=== PATIENT | female | born 1940 | race Caucasian/White ===

== ENCOUNTER → 2017-01-19 | Day surgery (SDC) | payer MEDICARE, BC, MEDICAID ==
[~2017-01-19] MED LIST: Sodium Chloride 0.9% 10 ML Syringe FLUSH PRN
[2017-01-19 10:11] VITALS: BP 173/78
--- NOTE | 2017-01-19 13:13 | OR ---
DATE OF PROCEDURE: 01/19/2017 POSTOPERATIVE CARE: Postoperative care will be provided mainly at the [address] [place] [address] [facility] in conjunction with [facility]. PREOPERATIVE DIAGNOSIS: Cataract, left eye. PREOPERATIVE DIAGNOSIS: Cataract, left eye. PROCEDURE: Phacoemulsification with intraocular lens placement, left eye. ANESTHESIA: Topical and intracameral. ESTIMATED BLOOD LOSS: Minimal. COMPLICATIONS: None. PATHOLOGY SPECIMENS: None. SURGICAL FINDINGS: None. INDICATION FOR PROCEDURE: The patient is a 76-year-old female with history of a visually significant cataract in the left eye, which interfered with activities of daily living. This consisted of a nuclear sclerosis cataract. Following careful discussion of the risks, benefits and alternatives to cataract extraction with intraocular lens placement including blindness and , the patient elected to proceed, and informed, written consent was obtained prior to the procedure. DESCRIPTION OF THE PROCEDURE: The patient was previously identified, and a dane placed above the left eye. All sources, including the patient, indicated that the left eye was the correct eye. The patient was subsequently taken to the operating room where standard monitors were applied. The patient was then prepped and draped in the usual sterile fashion for ophthalmic surgery. Attention was first directed at the 12 o'clock position where a paracentesis port was fashioned. Shugar solution followed by Viscoat was instilled into the eye. Attention was then directed to the 8:30 position where a triplanar incision was made in a near-clear manner using a keratome. A continuous capsulorrhexis was then made using a combination of the cystotome and Utrata forceps. Hydrodissection was achieved using a balanced salt solution, and the lens rotated nicely. Phacoemulsification was then done using a modified [id number] technique without complication. Phaco time was 13.75 CDE. The remaining cortex was removed using the irrigation/aspiration handpiece. Provisc was then instilled into the eye. A Technis lens, model [id number], at 22.5 diopters was then placed in the capsular bag using an [place] injector. The remaining viscoelastic was removed using the irrigation/aspiration forceps. All wounds were then checked and found to be watertight. The lid speculum and drapes were removed. Maxitrol ointment was placed in the patient's left eye, and the eye was shielded. The patient tolerated the procedure well. The patient was instructed to follow up tomorrow. All needle and sponge counts were correct at the end of the procedure. Aracelis Mittal MD /[id number]
== END ==
LOC: JP.SDS 07:53
PROVIDERS: ATTEND Ophthalmology
DX: H26.9 Unspecified cataract (principal); I25.10 Atherosclerotic heart disease of native coronary artery without angina pectoris; I10 Essential (primary) hypertension; E11.9 Type 2 diabetes mellitus without complications; I73.9 Peripheral vascular disease, unspecified; Z87.891 Personal history of nicotine dependence; Z91.041 Radiographic dye allergy status
CPT/HCPCS: 66984; C1780; J7050

== ENCOUNTER 2017-02-02 06:24 | Day surgery (SDC) | payer MEDICARE, BC, MEDICAID ==
[2017-02-02] MEDS ORDERED: Sodium Chloride 0.9% 10 ML Syringe FLUSH PRN (07:00)
[2017-02-02 07:59] VITALS: BP 201/90
--- NOTE | 2017-02-02 10:06 | OR ---
DATE OF PROCEDURE: 02/02/2017 POSTOPERATIVE CARE: Postoperative care will be provided mainly at the [address] [place] [address] [facility] in conjunction with [facility]. PREOPERATIVE DIAGNOSIS: Cataract, right eye. POSTOPERATIVE DIAGNOSIS: Cataract, right eye. PROCEDURE: Phacoemulsification with intraocular lens placement, right eye. ANESTHESIA: Topical and intracameral. ESTIMATED BLOOD LOSS: Minimal. COMPLICATIONS: None. PATHOLOGY SPECIMENS: None. SURGICAL FINDINGS: None. INDICATION FOR PROCEDURE: The patient is a 76-year-old female with history of a visually significant cataract in the right eye, which interfered with activities of daily living. This consisted of a nuclear sclerosis cataract. Following careful discussion of the risks, benefits and alternatives to cataract extraction with intraocular lens placement including blindness and , the patient elected to proceed, and informed, written consent was obtained prior to the procedure. DESCRIPTION OF THE PROCEDURE: The patient was previously identified, and a dane placed above the right eye. All sources, including the patient, indicated that the right eye was the correct eye. The patient was subsequently taken to the operating room where standard monitors were applied. The patient was then prepped and draped in the usual sterile fashion for ophthalmic surgery. Attention was first directed at the 12 o'clock position where a paracentesis port was fashioned. Shugar solution followed by Viscoat was instilled into the eye. Attention was then directed to the 8:30 position where a triplanar incision was made in a near-clear manner using a keratome. A continuous capsulorrhexis was then made using a combination of the cystotome and Utrata forceps. Hydrodissection was achieved using a balanced salt solution, and the lens rotated nicely. Phacoemulsification was then done using a modified [id number]-[id number] technique without complication. Phaco time was 7.66 CDE. The remaining cortex was removed using the irrigation/aspiration handpiece. Provisc was then instilled into the eye. A Technis lens, model [id number], at 23.0 diopters was then placed in the capsular bag using an [place] injector. The remaining viscoelastic was removed using the irrigation/aspiration forceps. All wounds were then checked and found to be watertight. The lid speculum and drapes were removed. Maxitrol ointment was placed in the patient's right eye, and the eye was shielded. The patient tolerated the procedure well. The patient was instructed to follow up tomorrow. All needle and sponge counts were correct at the end of the procedure. Aracelis Mittal MD /[id number]
== END 2017-02-02 08:01 | disposition home or self-care (01) ==
LOC: JP.SDS 06:24
PROVIDERS: ATTEND Ophthalmology
DX: H25.11 Age-related nuclear cataract, right eye (principal); I25.10 Atherosclerotic heart disease of native coronary artery without angina pectoris; I10 Essential (primary) hypertension; E11.9 Type 2 diabetes mellitus without complications; I73.9 Peripheral vascular disease, unspecified; Z91.041 Radiographic dye allergy status; E04.1 Nontoxic single thyroid nodule
CPT/HCPCS: 66984; C1780; J7050

== ENCOUNTER 2017-10-02 06:21 | Day surgery (SDC) | payer MEDICARE, BC, MEDICAID ==
[2017-10-02] MEDS ORDERED: Glycopyrrolate 0.2 MG/ML 2 ML SDV IVPUSH ONE (07:00)
[2017-10-02] MEDS ORDERED: Dextrose 5%-Lactated Ringers 1,000 ML IV SCH (07:00)
[2017-10-02] MEDS ORDERED: fentaNYL 100 MCG/2 ML SDV ONE (08:32)
[2017-10-02] MEDS ORDERED: Propofol 200 MG/20 ML SDV ONE (08:32)
[2017-10-02 09:45] VITALS: BP 160/84
--- NOTE | 2017-10-06 11:17 | OR ---
DATE OF PROCEDURE: 10/02/2017 PREOPERATIVE DIAGNOSIS: History of Foreman esophagus. POSTOPERATIVE DIAGNOSES: History of Foreman esophagus with small hiatal hernia and minimal ongoing inflammation at esophagogastric junction. OPERATIVE PROCEDURE: Esophagogastroduodenoscopy with biopsy of esophagogastric junction for surveillance of Foreman esophagus. ANESTHESIA: IV sedation. INDICATION FOR PROCEDURE: A 77-year-old presenting for followup surveillance of her Foreman esophagus. The plan is to proceed with upper GI endoscopy with biopsies as indicated. Potential risks including bleeding and perforation were discussed, and the patient wishes to proceed. DESCRIPTION OF PROCEDURE: The patient was taken to the operating room and placed in a left lateral decubitus position. IV sedation was administered, after which the upper GI endoscope was passed orally through the length of the esophagus and into the stomach with retroflexion view of the fundus, thereafter through the pyloric channel and into the junction of the third and fourth portions of the duodenum. Findings included normal hypopharynx, larynx, upper esophageal sphincter, and esophageal body. At the EG junction, a small hiatal hernia was noted. There was some linear upward extension of the gastroesophageal junction mucosal lining above the gastric folds consistent with Foreman esophagus. No erosions or ulcers or stricturing was noted. There was no plaquing suggestive of neoplastic changes with the remainder of the stomach and duodenal exams were unremarkable. At this point, biopsies were obtained from the area of the possible Foreman esophagus. Once these were completed, minimal bleeding was noted, and the procedure was concluded. The patient was taken to the recovery room in satisfactory condition. There were no evident complications. The patient presently well controlled from a symptom standpoint on Prilosec 20 mg a day, continue that medical regimen assuming there is no progression toward dysplasia with today's biopsies. We would recommend repeat upper GI endoscopy in 2 years. Connor Scott MD /[id number]
== END 2017-10-02 10:12 | disposition home or self-care (01) ==
LOC: JP.SDS 06:21
PROVIDERS: ATTEND Surgery
DX: K22.70 Barrett's esophagus without dysplasia (principal); K44.9 Diaphragmatic hernia without obstruction or gangrene; K31.89 Other diseases of stomach and duodenum; I25.10 Atherosclerotic heart disease of native coronary artery without angina pectoris; I10 Essential (primary) hypertension; E11.9 Type 2 diabetes mellitus without complications; K21.9 Gastro-esophageal reflux disease without esophagitis; I73.9 Peripheral vascular disease, unspecified; Z87.891 Personal history of nicotine dependence; Z91.041 Radiographic dye allergy status
CPT/HCPCS: 43239; 88305; J2704; J3010; J7042; J3490

== ENCOUNTER 2019-11-11 07:02 | Day surgery (SDC) | payer MEDICARE, MEDICAID ==
[2019-11-11] MEDS ORDERED: fentaNYL 100 MCG/2 ML SDV ONE (07:23)
[2019-11-11] MEDS ORDERED: Propofol 200 MG/20 ML SDV ONE (07:24)
[2019-11-11] MEDS ORDERED: Sodium Chloride 0.9% 1,000 ML IV SCH (07:30)
[2019-11-11] MEDS ORDERED: Atropine 0.4 MG/ML SDV ONE (08:30)
[2019-11-11 10:34] VITALS: BP 152/71; PULSE 64
--- NOTE | 2019-11-12 08:07 | OR ---
DATE OF PROCEDURE: 11/11/2019 SURGEON: James Feng MD PROCEDURE PERFORMED: Colonoscopy. FINDINGS: 1. Very tortuous colon. 2. Transverse colon polyp, approximately 1 cm, completely removed using hot snare. COMPLICATIONS: None. CYBER SYSTEMS ADMINISTRATOR: None. ANESTHESIA: MAC. PREOPERATIVE DIAGNOSES: History of colon polyps. POSTOPERATIVE DIAGNOSIS: History of colon polyps. RISKS: Risks, benefits, alternatives, and limitations including, infection, bleeding, and perforation were explained to the patient, who wished to proceed. PROCEDURE IN DETAIL: The patient was placed in left lateral decubitus position. Digital rectal exam was performed without abnormality. Scope was introduced and advanced atraumatically to the ileocecal valve. The scope was brought to the ileocecal valve. Unfortunately, the cecum could not be entered, due to significant tortuosities of the colon. Multiple attempts were made to gently advance this. However, this was unable to be done. Scope was brought back and the aforementioned polyp was completely removed using hot snare wire device. On retroflex, no abnormalities were noted. The patient tolerated the procedure well. James Feng MD /[id number]
== END 2019-11-11 10:15 | disposition home or self-care (01) ==
LOC: JP.SDS 07:02
PROVIDERS: ATTEND Surgery
DX: Z12.11 Encounter for screening for malignant neoplasm of colon (principal); D12.4 Benign neoplasm of descending colon; Q43.8 Other specified congenital malformations of intestine; E11.9 Type 2 diabetes mellitus without complications; I10 Essential (primary) hypertension; Z91.041 Radiographic dye allergy status; Z88.8 Allergy status to other drugs, medicaments and biological substances; Z86.010 Personal history of colon polyps
CPT/HCPCS: 45385; J0461; J2704; J3010; J7030

== ENCOUNTER 2020-10-05 05:19 | Day surgery (SDC) | payer MEDICARE, MEDICAID ==
[2020-10-05] MEDS ORDERED: Dextrose 5%-Lactated Ringers 1,000 ML IV SCH (06:00)
[2020-10-05] MEDS ORDERED: fentaNYL 100 MCG/2 ML SDV ONE (07:13)
[2020-10-05] MEDS ORDERED: Propofol 200 MG/20 ML SDV ONE (07:14)
[2020-10-05] MEDS ORDERED: Pantoprazole 40 MG Vial IVPUSH ONE (07:45)
[2020-10-05 08:33] VITALS: BP 157/59; PULSE 60
--- NOTE | 2020-10-12 12:41 | OR ---
DATE OF PROCEDURE: 10/05/2020 SURGEON: Connor Scott MD PREOPERATIVE DIAGNOSIS: History of Foreman esophagus. POSTOPERATIVE DIAGNOSIS: History of Foreman esophagus with significant inflammation, ulceration, and bleeding over the tongue of elevated columnar mucosa. OPERATIVE PROCEDURE: Esophagogastroduodenoscopy with: 1. Biopsies of area of ulcerated raised columnar mucosa and in area of probable Foreman esophagus. 2. Biopsies of antrum for CLOtest. ANESTHESIA: IV sedation. INDICATIONS FOR PROCEDURE: This is an 80-year-old female presenting with a followup upper endoscopy for surveillance of Foreman esophagus. She presently is on omeprazole 20 mg a day and feels like this has a fairly good control of her symptoms. Plan is to proceed with upper endoscopy with biopsies for followup of the Foreman esophagus. Potential risks including bleeding and perforation were discussed and the patient wishes to proceed. DETAILS OF THE PROCEDURE: The patient was taken to the operating room and placed in a left lateral decubitus position. IV sedation was administered, after which the upper GI endoscope was passed orally through the length of the esophagus and into the stomach with retroflexion view of the fundus and thereafter through the pyloric channel and into the proximal duodenum. Findings included normal hypopharynx, larynx, upper esophageal sphincter, and esophageal body. At the area of EG junction, a single tongue of columnar-type mucosa extending above the upper gastric folds was seen. This was actively ulcerated with some bleeding even before being touched by the gastroscope. This was associated with fairly large roughly 5 to 6 cm hiatal hernia. Apart from that, the remainder of the stomach and proximal duodenum were unremarkable. At this point, biopsies were obtained for the antrum for screening for H. pylori and this biopsy being sent for CLOtest and then multiple biopsies from the area of ulceration over the likely Foreman's esophagus were obtained. Minimal bleeding from the biopsy site was seen, additional bleeding was very presently, and the patient tolerated the procedure well. The patient was taken to the recovery room in satisfactory condition. At this point, we will move her omeprazole dose up to 20 mg b.i.d. We will await the pathology report and contact the patient regarding appropriate followup which would be a minimum of followup upper endoscopy in about 2 years. Connor Scott MD /[id number]
== END 2020-10-05 08:50 | disposition home or self-care (01) ==
LOC: JP.SDS 05:19
PROVIDERS: ATTEND Surgery
DX: K22.10 Ulcer of esophagus without bleeding (principal); K44.9 Diaphragmatic hernia without obstruction or gangrene; K21.00 Gastro-esophageal reflux disease with esophagitis, without bleeding; I25.10 Atherosclerotic heart disease of native coronary artery without angina pectoris; I10 Essential (primary) hypertension; E11.9 Type 2 diabetes mellitus without complications; Z91.041 Radiographic dye allergy status
CPT/HCPCS: 43239; 87081; 88305; 88312; C9113; J2704; J3010; J7121

== ENCOUNTER 2021-03-17 05:29 | Emergency (ER) | payer MEDICARE, MEDICAID ==
--- NOTE | 2021-03-17 06:28 | EDM.PDOC ---
<OfficerYarile - Last Filed: 03/17/21 06:46> ED HPI GENERAL MEDICAL PROBLEM - General Chief Complaint: General Stated Complaint: LEG NUMB Time Seen by Provider: 03/17/21 06:20 Source of Information: Reports: Patient, Family, RN Notes Reviewed History Limitations: Reports: No Limitations - History of Present Illness INITIAL COMMENTS - FREE TEXT/NARRATIVE: 80-year-old female presents emergency department day complaint of painful cold right foot, she states it started last night the foot had gone numb she was able to ambulate around the room this did help a little bit she went to bed and then this morning she woke up foot was painful. She is not taking any of her medications this morning on presentation to nursing staff her heart rate was in the high 30s however this is now returned to normal rate. Right Foot Pain Score (Numeric/FACES): 8 - Related Data Allergies Allergy/AdvReac Type Severity Reaction Status Date / Time Iodinated Contrast Media Allergy Itching Verified 03/17/21 05:56 [Iodinated Contrast Media - IV Dye] Home Meds: Home Meds Atenolol [Tenormin] 50 mg PO BEDTIME 08/02/13 [History] Isosorbide Mononitrate [Imdur] 60 mg PO BEDTIME 08/02/13 [History] Omeprazole [Prilosec] 20 mg PO BID 08/02/13 [History] amLODIPine/Benazepril [Lotrel 5-10 MG] 5 - 10 tab PO BEDTIME 08/02/13 [History] metFORMIN [Glucophage] 500 mg PO BIDM 08/02/13 [History] Glimepiride [Amaryl] 4 mg PO ACBREAKFAST 09/24/15 [History] Aspirin 325 mg PO DAILY 09/28/17 [History] Ferrous Sulfate 325 mg PO DAILY 11/07/19 [History] Rosuvastatin [Crestor] 10 mg PO DAILY 11/07/19 [History] Meclizine [Antivert] 12.5 - 25 mg PO TID PRN 10/02/20 [History] Past Medical History HEENT History: Reports: Allergic Rhinitis, Cataract, Impaired Vision Cardiovascular History: Reports: CAD, High Cholesterol, Hypertension, SD Gastrointestinal History: Reports: Colon Polyp, GERD, Hiatal Hernia, Other (See Below) Other Gastrointestinal History: Barretts esophagus Genitourinary History: Reports: UTI, 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: Musculoskeletal History: Reports: Arthritis, Fracture, Osteoarthritis, Other (See Below) Other Musculoskeletal History: right wrist fracture nose Endocrine/Metabolic History: Reports: Diabetes, Type II Hematologic History: Reports: Anemia, Anticoagulation Therapy Oncologic (Cancer) History: Reports: None - Infectious Disease History Infectious Disease History: Reports: Chicken Pox, Measles, Mumps, Pertussis (Whooping Cough), Scarlet Fever - Past Surgical History Head Surgeries/Procedures: Reports: None HEENT Surgical History: Reports: Cataract Surgery, Oral Surgery Cardiovascular Surgical History: Reports: Percutaneous Transluminal Angioplasty, Vascular Surgery Respiratory Surgical History: Reports: None GI Surgical History: Reports: Colonoscopy, EGD, Hernia Repair/Other, Polypectomy Other GI Surgeries/Procedures: hiatal hernia repair Female Surgical History: Reports: Hysterectomy Endocrine Surgical History: Reports: None Neurological Surgical History: Reports: None Musculoskeletal Surgical History: Reports: Other (See Below) Other Musculoskeletal Surgeries/Procedures:: right wrist pins and then removed Oncologic Surgical History: Reports: None Dermatological Surgical History: Reports: None Social & Family History - Family History Family Medical History: No Pertinent Family History - Tobacco Use Tobacco Use Status *Q: Never Tobacco User - Caffeine Use Caffeine Use: Reports: Coffee, Soda, Tea - Recreational Drug Use Recreational Drug Use: No ED ROS GENERAL - Review of Systems Review Of Systems: See Below Constitutional: Reports: No Symptoms HEENT: Reports: No Symptoms Respiratory: Reports: No Symptoms Cardiovascular: Reports: No Symptoms GI/Abdominal: Reports: No Symptoms Musculoskeletal: Reports: Leg Pain Neurological: Reports: Numbness, Tingling ED EXAM, GENERAL - Physical Exam Exam: See Below Exam Limited By: No Limitations General Appearance: Alert, WD/WN, No Apparent Distress Respiratory/Chest: No Respiratory Distress, Lungs Clear, Normal Breath Sounds, No Accessory Muscle Use, Chest Non-Tender Cardiovascular: Regular Rate, Rhythm, No Murmur Peripheral Pulses: 2+: Dorsalis Pedis (L), 4+: Dorsalis Pedis (R) (Cold foot) #1 Interpretation EKG Date: 03/17/21 Time: 06:47 Rhythm: NSR Meade: Normal P-Wave: Present QRS: Normal ST-T: Normal QT: Normal Comparison: NA - No Prior EKG Departure - Departure Disposition: DC/Tfer to Acute Hospital 02 Clinical Impression: Ischemia of right lower extremity - Discharge Information Referrals: PCP,None [Primary Care Provider] - Forms: ED Department Discharge Sepsis Event Note (ED) - Evaluation Sepsis Screening Result: No Definite Risk <Calvin Pierson - Last Filed: 03/17/21 09:11> Course - Vital Signs Text/Narrative:: Accepted in transfer by Dr. Garibay, vascular surgeon, @ [facility] @ 0900h Last Recorded V/S: Last Vital Signs Temp 36.3 C 03/17/21 06:00 Pulse 67 03/17/21 08:05 Resp 16 03/17/21 08:05 BP 131/63 03/17/21 08:05 Pulse Ox 96 03/17/21 08:05 - Orders/Labs/Meds Orders: Active Orders 24 hr Category Date Time Status VL Duplex Lwr Ext Art Ltd Rt [US] Stat Exams 03/17/21 06:24 Ordered EKG 12 Lead [EK] Stat Ther 03/17/21 06:26 Ordered Labs: Laboratory Tests 03/17/21 03/17/21 Range/Units 06:36 06:36 WBC 6.4 (4.5-11.0) K/uL RBC 4.46 (3.30-5.50) M/uL Hgb 12.6 (12.0-15.0) g/dL Hct 38.0 (36.0-48.0) % MCV 85 (80-98) fL MCH 28 (27-31) pg MCHC 33 (32-36) % Plt Count 179 (150-400) K/uL Neut % (Auto) 63.5 (36-66) % Lymph % (Auto) 22.4 L (24-44) % Banner % (Auto) 6.9 H (2-6) % Eos % (Auto) 6.7 H (2-4) % Baso % (Auto) 0.5 (0-1) % Sodium 138 L (140-148) mmol/L Potassium 3.9 (3.6-5.2) mmol/L Chloride 99 L (100-108) mmol/L Carbon Dioxide 25 (21-32) mmol/L Anion Gap 17.9 H (5.0-14.0) mmol/L BUN 12 (7-18) mg/dL Creatinine 0.9 (0.6-1.0) mg/dL Est Cr Clr Drug Dosing 35.81 mL/min Estimated GFR (MDRD) > 60 (>60) Glucose 140 H (74-106) mg/dL Calcium 8.6 (8.5-10.1) mg/dL Total Bilirubin 0.7 (0.2-1.0) mg/dL AST 15 (15-37) U/L ALT 15 (12-78) U/L Alkaline Phosphatase 49 (46-116) U/L Troponin I 0.051 (0.000-0.056) ng/mL Total Protein 7.1 (6.4-8.2) g/dL Albumin 3.7 (3.4-5.0) g/dL Globulin 3.4 (2.3-3.5) g/dL Albumin/Globulin Ratio 1.1 L (1.2-2.2) Meds: Medications Discontinued Medications Generic Name Dose Route Start Last Admin Trade Name Freq PRN Reason Stop Dose Admin Hydromorphone HCl 0.5 mg 03/17/21 07:32 03/17/21 07:42 Hydromorphone 0.5 Mg/0.5 Ml Syringe IVPUSH 03/17/21 07:33 0.5 mg ONETIME ONE Administration Hydromorphone HCl Confirm 03/17/21 07:39 Hydromorphone 0.5 Mg/0.5 Ml Syringe Administered 03/17/21 07:40 Dose 0.5 mg .ROUTE .STK-MED ONE Hydromorphone HCl 0.5 mg 03/17/21 09:03 Hydromorphone 0.5 Mg/0.5 Ml Syringe IVPUSH 03/17/21 09:04 ONETIME ONE - Radiology Interpretation Free Text/Narrative:: Doppler studies show minimal flow in affected limb. Her old graft is chronically occluded. No flow at level of foot. Departure - Departure Time of Disposition: 09:35 Condition: Fair - Discharge Information *PRESCRIPTION DRUG MONITORING PROGRAM REVIEWED*: Not Applicable *COPY OF PRESCRIPTION DRUG MONITORING REPORT IN PATIENT [place]: Not Applicable Sepsis Event Note (ED) - Focused Exam Vital Signs: Vital Signs Temp Pulse Resp BP Pulse Ox 03/17/21 08:05 67 16 131/63 96 03/17/21 07:36 67 18 155/67 H 96 03/17/21 06:00 36.3 C 43 L 16 147/46 H 97 03/17/21 05:59 36.3 C 43 L 16 147/46 H 97
[2021-03-17] MEDS ORDERED: HYDROmorphone 0.5 MG/0.5 ML Syringe IVPUSH ONE ×2 (07:32→09:03)
[2021-03-17] MEDS ORDERED: HYDROmorphone 0.5 MG/0.5 ML Syringe ONE ×2 (07:39→09:09)
[2021-03-17 09:38] VITALS: BP 158/72; PULSE 69
[2021-03-17] MEDS ORDERED: Aspirin 325 MG Tab.EC PO ONE (09:50)
[2021-03-17] MEDS ORDERED: metFORMIN 500 MG Tab PO ONE (09:51)
[2021-03-17] MEDS ORDERED: Pantoprazole 40 MG Tab.CR PO SCH (10:00)
--- NOTE | 2021-03-17 14:24 | US ---
VL Duplex Lwr Ext Art Ltd Rt CLINICAL HISTORY: Cold right foot FINDINGS: Doppler images show biphasic waveforms in the common femoral artery. The this wishes to monophasic waveforms in the profunda femoral artery and in the proximal superficial femoral artery. Patient had a previous femoropopliteal bypass graft which is occluded. There is monophasic waveforms in the proximal anterior tibial artery. No waveforms are identified in the distal peroneal posterior tibial and dorsal pedal arteries IMPRESSION: Occluded femoral popliteal bypass graft Moderately diminished flow in the superficial femoral and profunda arteries No flow is documented in the ankle arteries
== END 2021-03-17 10:08 ==
LOC: JP.ED 05:29
DX: I70.221 Atherosclerosis of native arteries of extremities with rest pain, right leg (principal); E78.00 Pure hypercholesterolemia, unspecified; I10 Essential (primary) hypertension; I25.10 Atherosclerotic heart disease of native coronary artery without angina pectoris; I25.2 Old myocardial infarction; E11.9 Type 2 diabetes mellitus without complications; Z79.84 Long term (current) use of oral hypoglycemic drugs; Z79.82 Long term (current) use of aspirin; Z79.899 Other long term (current) drug therapy; Z91.041 Radiographic dye allergy status
CPT/HCPCS: 36415; 80053; 84484; 85025; 93005; 93926; 96374; 96376; 99285; A9270; J1170

== ENCOUNTER 2021-06-30 15:24 | Emergency (ER) | payer MEDICARE, MEDICAID ==
--- NOTE | 2021-06-30 15:48 | EDM.PDOC ---
ED HPI GENERAL MEDICAL PROBLEM - General Chief Complaint: Respiratory Problem Stated Complaint: SOB Time Seen by Provider: 06/30/21 15:45 Source of Information: Reports: Patient History Limitations: Reports: No Limitations - History of Present Illness INITIAL COMMENTS - FREE TEXT/NARRATIVE: 81-year-old female presents to the emergency department with dyspnea and exercise intolerance. Symptoms started yesterday. Sudden onset of symptoms while she was walking. She was not doing any strenuous activity. She is asymptomatic at rest. Symptoms recur with minimal activity. She denies any chest discomfort. No diaphoresis. No nausea. No jaw claudication. No paresthesias. Patient has history of silent IN. She does not know the status of her ejection fraction. 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 She was recently taken off her beta-ev and calcium channel ev medication and recently had revascularization for critical right lower extremity claudication. She had femoral endarterectomy. Previous to that, she had femoropopliteal bypass. She has jewish of pulses. Wounds on her right lower extremity have been healing. She denies any history of deep vein thrombosis or pulmonary embolism. She denies any recent ill exposure. She has not been having any significant cough. Denies any fever. Denies any dizziness. She has had swelling in her right lower extremity, but that preceded and followed her recent right leg intervention. Patient is on full-strength aspirin. Blood pressure medications have recently been adjusted. She has longstanding history of poorly controlled hypertension. Patient has not picked up the hydralazine that was prescribed at her discharge. She was hoping to discuss that with her doctor at her appointment tomorrow morning. She denies any new headaches. Denies any tearing chest pain. Denies any bleeding events. - Related Data Allergies Allergy/AdvReac Type Severity Reaction Status Date / Time Iodinated Contrast Media Allergy Itching Verified 03/17/21 05:56 [Iodinated Contrast Media - IV Dye] Home Meds: Home Meds Isosorbide Mononitrate [Imdur] 60 mg PO BEDTIME 08/02/13 [History] Omeprazole [Prilosec] 20 mg PO BID 08/02/13 [History] metFORMIN [Glucophage] 500 mg PO BIDM 08/02/13 [History] Glimepiride [Amaryl] 4 mg PO ACBREAKFAST 09/24/15 [History] Aspirin 325 mg PO DAILY PRN 09/28/17 [History] Ferrous Sulfate 325 mg PO DAILY 11/07/19 [History] Rosuvastatin [Crestor] 10 mg PO DAILY 11/07/19 [History] Meclizine [Antivert] 12.5 - 25 mg PO TID PRN 10/02/20 [History] hydrALAZINE [Apresoline] 25 mg PO Q12HR 06/30/21 [History] Past Medical History HEENT History: Reports: Allergic Rhinitis, Cataract, Impaired Vision Cardiovascular History: Reports: CAD, High Cholesterol, Hypertension, IN Respiratory History: Reports: None Gastrointestinal History: Reports: Colon Polyp, GERD, Hiatal Hernia, Other (See Below) Other Gastrointestinal History: Barretts esophagus Genitourinary History: Reports: UTI, Recurrent [employer]GER History: Reports: Musculoskeletal History: Reports: Arthritis, Fracture, Osteoarthritis, Other (See Below) Other Musculoskeletal History: right wrist fracture nose Endocrine/Metabolic History: Reports: Diabetes, Type II Hematologic History: Reports: Anemia, Anticoagulation Therapy Oncologic (Cancer) History: Reports: None - Infectious Disease History Infectious Disease History: Reports: Chicken Pox, Measles, Mumps, Pertussis (Whooping Cough), Scarlet Fever - Past Surgical History Head Surgeries/Procedures: Reports: None HEENT Surgical History: Reports: Cataract Surgery, Oral Surgery Cardiovascular Surgical History: Reports: Percutaneous Transluminal Angioplasty, Vascular Surgery Respiratory Surgical History: Reports: None GI Surgical History: Reports: Colonoscopy, EGD, Hernia Repair/Other, Polypectomy Other GI Surgeries/Procedures: hiatal hernia repair Female Surgical History: Reports: Hysterectomy Endocrine Surgical History: Reports: None Neurological Surgical History: Reports: None Musculoskeletal Surgical History: Reports: Other (See Below) Other Musculoskeletal Surgeries/Procedures:: right wrist pins and then removed Oncologic Surgical History: Reports: None Dermatological Surgical History: Reports: None Social & Family History - Family History Family Medical History: No Pertinent Family History - Tobacco Use Tobacco Use Status *Q: Former Tobacco User Used Tobacco, but Quit: Yes Month/Year Tobacco Last Used: 06/07/1991 - Caffeine Use Caffeine Use: Reports: Coffee, Soda, Tea - Recreational Drug Use Recreational Drug Use: No ED ROS GENERAL - Review of Systems Review Of Systems: Comprehensive ROS is negative, except as noted in HPI. ED EXAM, GENERAL - Physical Exam Exam: See Below Free Text/Narrative:: General: This is a pleasant elderly female who is alert and in no acute distress. She is conversational and her speech is normal. HEENT: Pupils are equal. Extraocular movements are intact. Conjunctiva clear. No subconjunctival hemorrhages. Nares are patent. No epistaxis. Oral mucosa is moist. No lesions. Neck: Trachea midline. No thyromegaly. No masses. No lymphadenopathy. Lungs: Clear to auscultation. No wheezes or rhonchi. No crackles. Cardiovascular: Bradycardic. Regular rhythm. No murmurs. Abdomen: Soft and nontender. No masses. No organomegaly. Back: Kyphotic posture. Nontender. Extremities: Right lower extremity swelling compared to left. Is on her distal and lateral right lower extremity have healed since her revascularization. Pulses are palpable in her dorsalis pedis and posterior tibialis artery. Negative Homans' sign. No palpable cords. Neurologic: Cranial nerves are intact. No motor or sensory deficits. Exam Limited By: No Limitations General Appearance: Alert #1 Interpretation EKG Date: 06/30/21 Time: 16:57 Rhythm: Other (Sinus bradycardia) Rate (Beats/Min): 45 [place]: Normal P-Wave: Present QRS: RBBB ST-T: Normal QT: Normal Comparison: No Change Course - Vital Signs Last Recorded V/S: Last Vital Signs Temp 97.4 F 06/30/21 15:44 Pulse 46 L 06/30/21 18:21 Resp 16 06/30/21 15:44 BP 193/60 H 06/30/21 18:23 Pulse Ox 94 L 06/30/21 18:21 - Orders/Labs/Meds Orders: Active Orders 24 hr Category Date Time Status Chest 2V [CR] Stat Exams 06/30/21 16:07 Taken Isolation [COMM] Stat Oth 06/30/21 16:13 Ordered EKG 12 Lead [EK] Stat Ther 06/30/21 16:07 Ordered Labs: Laboratory Tests 06/30/21 06/30/21 06/30/21 Range/Units 16:20 16:22 16:22 WBC 5.5 (4.5-11.0) K/uL RBC 3.91 (3.30-5.50) M/uL Hgb 10.7 L (12.0-15.0) g/dL Hct 34.4 L (36.0-48.0) % MCV 88 (80-98) fL MCH 27 (27-31) pg MCHC 31 L (32-36) % Plt Count 145 L (150-400) K/uL Neut % (Auto) 64.1 (36-66) % Lymph % (Auto) 22.7 L (24-44) % [place] % (Auto) 6.8 H (2-6) % Eos % (Auto) 5.5 H (2-4) % Baso % (Auto) 0.7 (0-1) % D-Dimer, Quantitative 985.81 H (0.0-500.0) ng/mL Sodium (140-148) mmol/L Potassium (3.6-5.2) mmol/L Chloride (100-108) mmol/L Carbon Dioxide (21-32) mmol/L Anion Gap (5.0-14.0) mmol/L BUN (7-18) mg/dL Creatinine (0.6-1.0) mg/dL Est Cr Clr Drug Dosing mL/min Estimated GFR (MDRD) (>60) Glucose (74-106) mg/dL Calcium (8.5-10.1) mg/dL Troponin I High Sens (<=60.3) pg/mL NT-Pro-B Natriuret Pep (5-450) pg/mL Influenza Type A RNA Negative (NEGATIVE) RSV RNA (INAAT) Negative (NEGATIVE) Influenza Type B RNA Negative (NEGATIVE) SARS-CoV-2 RNA (GINA) Negative (NEGATIVE) 06/30/21 06/30/21 06/30/21 Range/Units 16:22 17:02 18:21 WBC (4.5-11.0) K/uL RBC (3.30-5.50) M/uL Hgb (12.0-15.0) g/dL Hct (36.0-48.0) % MCV (80-98) fL MCH (27-31) pg MCHC (32-36) % Plt Count (150-400) K/uL Neut % (Auto) (36-66) % Lymph % (Auto) (24-44) % [place] % (Auto) (2-6) % Eos % (Auto) (2-4) % Baso % (Auto) (0-1) % D-Dimer, Quantitative (0.0-500.0) ng/mL Sodium 142 (140-148) mmol/L Potassium 4.2 (3.6-5.2) mmol/L Chloride 106 (100-108) mmol/L Carbon Dioxide 28 (21-32) mmol/L Anion Gap 7.6 (5.0-14.0) mmol/L BUN 20 H D (7-18) mg/dL Creatinine 1.2 H (0.6-1.0) mg/dL Est Cr Clr Drug Dosing 26.41 mL/min Estimated GFR (MDRD) 43 L (>60) Glucose 194 H (74-106) mg/dL Calcium 8.9 (8.5-10.1) mg/dL Troponin I High Sens 645.6 H* 645.0 H* (<=60.3) pg/mL NT-Pro-B Natriuret Pep 86706 H (5-450) pg/mL Influenza Type A RNA (NEGATIVE) RSV RNA (INAAT) (NEGATIVE) Influenza Type B RNA (NEGATIVE) SARS-CoV-2 RNA (GINA) (NEGATIVE) Meds: Medications Discontinued Medications Generic Name Dose Route Start Last Admin Trade Name Freq PRN Reason Stop Dose Admin Furosemide 20 mg 06/30/21 17:56 06/30/21 18:23 Furosemide 20 Mg Tab PO 06/30/21 17:57 20 mg ONETIME ONE Administration Hydralazine HCl 25 mg 06/30/21 17:55 06/30/21 18:23 Hydralazine 25 Mg Tab PO 06/30/21 17:56 25 mg ONETIME ONE Administration - Radiology Interpretation Free Text/Narrative:: Chest x-ray was ordered and interpreted by myself pending official read from radiology. Cardiomegaly is present. This is similar compared to previous. She does have some perivascular congestion. She has minimal pleural effusions with blunting of costophrenic angles. No obvious infiltrate. - Re-Assessments/Exams Free Text/Narrative Re-Assessment/Exam: 06/30/21 16:59 Review medical records from [facility]. Patient developed complete heart block while on combination of a beta-ev and calcium channel ev. These were discontinued. She was on transvenous pacer. EP consult was placed. Kevin nesha was discharged with usual follow-up. At the time of discharge, hemoglobin was 10.4. Heart rate was in the low to mid 40s. Systolic pressures were in the 140s to 190s and diastolics were in the 50s to 70s. EP cardiology suggested a 30-day event monitor on discharge and follow-up with Dr. Alegria in 1 month. She was instructed to continue aspirin, Crestor, lisinopril, Imdur for history of coronary artery disease. 06/30/21 17:27 A long conversation with the patient regarding her test results and my differential diagnosis. Given her elevated troponin and her chest x-ray, I asked about weight gain. She indicates a 6 pound weight gain. I think this correlates with mild heart failure symptoms likely caused from uncontrolled hypertension. Patient also has bradycardia which may be symptomatic, and she is in the process of being evaluated for a pacemaker. Elevated age-adjusted D- dimer is also discussed. Patient has contrast allergy. She also has borderline renal function. With joint decision-making, we elected to defer CT angiography. Patient is not hypoxic nor tachypneic. I feel that she has a alternative explanation for her dyspnea with her heart failure and uncontrolled hypertension. I indicated my desire to recheck a troponin at 2 hours post initial check to monitor for stability. We discussed diuretic therapy for management of heart failure symptoms. She has follow-up tomorrow morning with her primary care provider. Patient does not have any concern about going home with clear instructions and potentially new medications (diuretics). 06/30/21 17:43 His medical records indicate elevated troponin while hospitalized 1 month ago. These were in the range of 0.063-0.077. Departure - Departure Time of Disposition: 19:12 Disposition: Home, Self-Care 01 Condition: Good Clinical Impression: Congestive heart failure, Hypertension with fluid overload - Discharge Information *PRESCRIPTION DRUG MONITORING PROGRAM REVIEWED*: Not Applicable *COPY OF PRESCRIPTION DRUG MONITORING REPORT IN PATIENT [place]: Not Applicable Instructions: Heart Failure, Self-Care, [id number], Heart Failure Action Plan, Heart Failure, Self-Care Referrals: Leo Peace NP [Primary Care Provider] - Forms: ED Department Discharge Additional Instructions: Low-sodium diet. Monitor weights. Restrict fluids to 1-1/2 L/day. Take hypertension medications as directed. Follow-up with cardiology as planned. Determination of need for pacemaker is pending. Sepsis Event Note (ED) - Evaluation Sepsis Screening Result: No Definite Risk - Focused Exam Vital Signs: Vital Signs Temp Pulse Resp BP BP Pulse Ox 06/30/21 18:23 193/60 H 06/30/21 18:21 46 L 193/60 H 94 L 06/30/21 17:48 44 L 188/68 H 94 L 06/30/21 17:26 44 L 194/59 H 94 L 06/30/21 16:53 44 L 202/64 H 94 L 06/30/21 16:23 46 L 193/66 H 92 L 06/30/21 16:03 47 L 212/57 H 96 06/30/21 15:44 97.4 F 52 L 16 215/59 H 95 06/30/21 15:41 97.4 F 52 L 16 215/59 H 95 - My Orders Last 24 Hours: My Active Orders 06/30/21 16:07 Chest 2V [CR] Stat EKG 12 Lead [EK] Stat 06/30/21 16:13 Isolation [COMM] Stat - Assessment/Plan Last 24 Hours: My Active Orders 06/30/21 16:07 Chest 2V [CR] Stat EKG 12 Lead [EK] Stat 06/30/21 16:13 Isolation [COMM] Stat Assessment:: 1. Uncontrolled hypertension 2. Dyspnea with exertion 3. Weight gain of 6 pounds 4. Pulmonary vascular congestion on chest x-ray 5. Elevated troponin, likely secondary to heart failure 6. Elevated age-adjusted D-dimer, nonspecific. Recent femoral artery endarterectomy 1 month ago. We shared decision-making, patient deferred CT angiogram of chest. Also has contrast allergy. 7. Mild anemia. This is stable compared with 1 month ago. 8. Diabetes mellitus, with hyperglycemia 9. Coronary artery disease, records indicate this is nonobstructive. 10. Peripheral arterial disease, recent femoral artery endarterectomy with palpable pulses and healing ulcers. No claudication symptoms. 11. Bradycardia, likely symptomatic, pending EP evaluation for consideration of pacemaker. 12. Remote history tobacco use. 13. Chronic kidney disease. Plan: Patient was given a 25 mg dose of hydralazine in the ED with improvement of blood pressure and no adverse reaction. Patient also received 20 mg of PO furosemide. She did have UOP but was uncertain if the volume was greater than baseline. Discussed safe discharge plan with. Return precautions. We discussed high probability of heart failure secondary to uncontrolled hypertension with resultant pulmonary edema as a cause for her symptoms of dyspnea with exertion. Weight gain correlates with this. Noncompliance with hydralazine correlates with this. Patient has appointment tomorrow and is reliable for follow-up. 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 I gave her a copy of her discharge medication reconciliation sheet from her recent hospitalization. She will discuss dosing of furosemide with her primary care provider tomorrow. If she does not have a significant diuretic response, doubling the dose would seem to be appropriate. She states that she will have laboratory testing tomorrow which was planned at a time. I think this is appropriate as well.
[2021-06-30 16:57] LABS: CORONAVIRUS COVID-19 NAA NEGATIVE (NEGATIVE)
[2021-06-30] MEDS ORDERED: hydrALAZINE 25 MG Tab PO ONE (17:55)
[2021-06-30] MEDS ORDERED: Furosemide 20 MG Tab PO ONE (17:56)
[2021-06-30 19:13] VITALS: BP 196/63; PULSE 49
--- NOTE | 2021-07-01 09:29 | CR ---
CHEST: 2 view CLINICAL HISTORY:SOB COMPARISON:2016 FINDINGS: Heart is enlarged. There are diffuse bilateral interstitial and alveolar infiltrates. There are small bilateral pleural effusions.There are atherosclerotic changes in the aorta. Impression: Diffuse bilateral pulmonary infiltrates. This most likely represents CHF. Diffuse pneumonitis is felt less likely but not excluded
== END 2021-06-30 19:36 | disposition home or self-care (01) ==
LOC: JP.ED 15:24
DX: I11.0 Hypertensive heart disease with heart failure (principal); I50.9 Heart failure, unspecified; E87.70 Fluid overload, unspecified; I25.10 Atherosclerotic heart disease of native coronary artery without angina pectoris; E78.00 Pure hypercholesterolemia, unspecified; I25.2 Old myocardial infarction; E11.9 Type 2 diabetes mellitus without complications; M19.90 Unspecified osteoarthritis, unspecified site; Z91.041 Radiographic dye allergy status; Z79.899 Other long term (current) drug therapy; Z20.822 Contact with and (suspected) exposure to COVID-19; Z79.82 Long term (current) use of aspirin; Z87.891 Personal history of nicotine dependence
CPT/HCPCS: 0241U; 36415; 71046; 80048; 83880; 84484; 85025; 85379; 93005; 99285; A9270

== ENCOUNTER 2022-02-04 07:55 | Day surgery (SDC) | payer MEDICARE, MEDICAID ==
[~2022-02-04 07:55] MED LIST changes: +Propofol 200 MG/20 ML SDV ONE; -Sodium Chloride 0.9% 10 ML Syringe FLUSH PRN; +fentaNYL 100 MCG/2 ML SDV ONE
[2022-02-04] MEDS ORDERED: Dextrose 5%-Lactated Ringers 1,000 ML IV SCH (08:30)
[2022-02-04 10:17] VITALS: BP 183/47
[2022-02-04 10:48] VITALS: PULSE 39
== END 2022-02-04 11:07 | disposition home or self-care (01) ==
LOC: JP.SDS 07:55
PROVIDERS: ATTEND Surgery
DX: K22.70 Barrett's esophagus without dysplasia (principal); K21.9 Gastro-esophageal reflux disease without esophagitis; Z53.09 Procedure and treatment not carried out because of other contraindication; R00.1 Bradycardia, unspecified; I44.2 Atrioventricular block, complete
CPT/HCPCS: 93005; J3010; J7121; J2704

== ENCOUNTER 2022-02-10 08:21 | Day surgery (SDC) | payer MEDICARE, MEDICAID ==
[2022-02-10] MEDS ORDERED: Acetaminophen 500 MG Tab PO ONE (08:30)
[2022-02-10] MEDS ORDERED: Dextrose 5%-Lactated Ringers 1,000 ML IV SCH (09:00)
[2022-02-10] MEDS ORDERED: ceFAZolin 2 GM in Sodium Chloride 0.9% 50 ML IV ONE (09:00)
[2022-02-10] MEDS ORDERED: Propofol 200 MG/20 ML SDV ONE (09:22)
[2022-02-10] MEDS ORDERED: Midazolam 1 MG/ML 2 ML SDV ONE (09:22)
[2022-02-10] MEDS ORDERED: fentaNYL 100 MCG/2 ML SDV ONE (09:22)
[2022-02-10 09:23] LABS: ESTIMATED GFR 32 mL/min (>60)
[2022-02-10] MEDS ORDERED: Labetalol 20 MG/4 ML Syringe ONE (09:46)
[2022-02-10] MEDS ORDERED: Bupivacaine 0.5%/EPINEPHrine 1:200,000 50 ML MDV ONE (11:39)
[2022-02-10] MEDS ORDERED: Lidocaine 1% 50 ML MDV ONE (11:39)
[2022-02-10] MEDS ORDERED: Glucagon,Human Recombinant 1 MG Vial IM PRN (14:51)
[2022-02-10] MEDS ORDERED: Insulin Lispro 100 Unit/ML 3 ML KwikPen SUBCUT PRN (14:51)
[2022-02-10] MEDS ORDERED: 50% Dextrose in Water 50 ML Syringe IVPUSH PRN (14:51)
[2022-02-10] MEDS ORDERED: Glucose Gel 15 GM in 37.5 GM Tube PO PRN (14:51)
[2022-02-10] MEDS ORDERED: traMADol 50 MG Tab PO PRN (15:00)
[2022-02-10] MEDS ORDERED: Ondansetron 4 MG/2 ML SDV IVPUSH PRN (15:00)
[2022-02-10] MEDS ORDERED: Ipratropium 0.03% Nasal Spray 30 ML Bot NASBOTH PRN (15:06)
[2022-02-10] MEDS: Dextrose 5%-Lactated Ringers 1,000 ML IV SCH (15:34)
[2022-02-10] MEDS: Acetaminophen 325 MG Tab PO SCH ×2 (15:39→21:16)
[2022-02-10] MEDS: hydrALAZINE 25 MG Tab PO SCH ×2 (15:39→20:06)
[2022-02-10] MEDS: metFORMIN 500 MG Tab PO SCH (17:21)
[2022-02-10] MEDS: ceFAZolin 1 GM in Premix Bag 1 BAG IV SCH (20:05)
[2022-02-11] MEDS: Acetaminophen 325 MG Tab PO SCH ×2 (04:40→10:22)
[2022-02-11] MEDS: ceFAZolin 1 GM in Premix Bag 1 BAG IV SCH (04:40)
[2022-02-11] MEDS: Dextrose 5%-Lactated Ringers 1,000 ML IV SCH (04:41)
[2022-02-11] MEDS ORDERED: Isosorbide Mononitrate 30 MG Tab.ER PO SCH (07:30)
[2022-02-11] MEDS: metFORMIN 500 MG Tab PO SCH (07:41)
[2022-02-11] MEDS ORDERED: Glimepiride 2 MG Tab PO SCH (08:00)
[2022-02-11] MEDS: hydrALAZINE 25 MG Tab PO SCH (08:31)
[2022-02-11] MEDS ORDERED: Furosemide 20 MG Tab PO SCH (09:00)
[2022-02-11] MEDS ORDERED: Aspirin 325 MG Tab.EC PO SCH (09:00)
[2022-02-11] MEDS ORDERED: Lisinopril 20 MG Tab PO SCH (09:00)
[2022-02-11 10:50] VITALS: BP 113/57; PULSE 82
== END 2022-02-11 13:25 | disposition home or self-care (01) ==
LOC: JP.SDS 08:21 → JP.MS 13:25 → JP.SDS 02-11 13:25
PROVIDERS: ATTEND Surgery
DX: I44.2 Atrioventricular block, complete (principal); I25.10 Atherosclerotic heart disease of native coronary artery without angina pectoris; E78.00 Pure hypercholesterolemia, unspecified; I10 Essential (primary) hypertension; I25.2 Old myocardial infarction; E11.9 Type 2 diabetes mellitus without complications; Z79.84 Long term (current) use of oral hypoglycemic drugs; Z79.899 Other long term (current) drug therapy; Z91.040 Latex allergy status; Z98.890 Other specified postprocedural states; Z87.891 Personal history of nicotine dependence
CPT/HCPCS: 33208; 36415; 80053; 82947; 83735; 83880; 84100; 85027; A9270; C1898; J0690; J1642; J2001; J2020; J2250; J2704; J3010; J3490; J7121

== ENCOUNTER 2022-06-04 17:49 | Emergency (ER) | payer MEDICARE, MEDICAID ==
[2022-06-04 18:04] VITALS: BP 156/65; PULSE 97
== END 2022-06-04 19:15 | disposition home or self-care (01) ==
LOC: JP.ED 17:49
DX: S00.03XA Contusion of scalp, initial encounter (principal); I25.10 Atherosclerotic heart disease of native coronary artery without angina pectoris; E78.00 Pure hypercholesterolemia, unspecified; I10 Essential (primary) hypertension; E11.9 Type 2 diabetes mellitus without complications; Z91.041 Radiographic dye allergy status; Z79.899 Other long term (current) drug therapy; Z79.82 Long term (current) use of aspirin; Z79.84 Long term (current) use of oral hypoglycemic drugs; Z90.710 Acquired absence of both cervix and uterus; W22.8XXA Striking against or struck by other objects, initial encounter
CPT/HCPCS: 70450; 99283

== ENCOUNTER 2022-09-05 06:53 | Day surgery (SDC) | payer MEDICARE, MEDICAID ==
[2022-09-05] MEDS ORDERED: Dextrose 5%-Lactated Ringers 1,000 ML IV SCH (07:30)
[2022-09-05] MEDS ORDERED: Propofol 200 MG/20 ML SDV ONE (08:10)
[2022-09-05 10:04] VITALS: BP 136/57; PULSE 94
== END 2022-09-05 10:20 | disposition home or self-care (01) ==
LOC: JP.SDS 06:53
PROVIDERS: ATTEND Surgery
DX: K21.00 Gastro-esophageal reflux disease with esophagitis, without bleeding (principal); K29.70 Gastritis, unspecified, without bleeding; K44.9 Diaphragmatic hernia without obstruction or gangrene; I10 Essential (primary) hypertension; E11.9 Type 2 diabetes mellitus without complications; Z87.19 Personal history of other diseases of the digestive system
CPT/HCPCS: 43239; 87081; 88305; J2704; J7121

== ENCOUNTER 2023-01-07 09:52 | Observation (INO) | payer MEDICARE, MEDICAID ==
[2023-01-07 10:08] LABS: HEMATOCRIT 32.5 % (34.3-46.0); HEMOGLOBIN 10.6 g/dL (11.2-15.5); MEAN CORPUSCULAR HEMOGLOBIN 27.9 pg (31.6-35.5); MEAN CORPUSCULAR HGB CONC 32.6 g/dL (31.6-35.5); MEAN CORPUSCULAR VOLUME 85.5 fL (81.4-99.0); RED BLOOD CELL COUNT 3.8 M/uL (3.77-5.24); WHITE BLOOD CELL COUNT,WBC 5.3 K/uL (3.2-11.0)
[2023-01-07 10:23] LABS: ANION GAP 11.6 mmol/L (5.0-14.0); BLOOD UREA NITROGEN,BUN 26 mg/dL (7-18); CALCIUM 8.8 mg/dL (8.5-10.1); CARBON DIOXIDE,CO2 25 mmol/L (21-32); CHLORIDE,CL 95 mmol/L (100-108); CREATININE 1.6 mg/dL (0.6-1.0); ESTIMATED GFR 32 mL/min (>60); GLUCOSE RANDOM 238 mg/dL (74-106); POTASSIUM,K 4.6 mmol/L (3.6-5.2); SODIUM,NA 127 mmol/L (140-148)
[2023-01-07 12:41] LABS: APPEARANCE,URINE CLEAR (CLEAR); BILIRUBIN,URINE NEGATIVE (NEGATIVE); COLOR,URINE YELLOW (YELLOW); GLUCOSE,URINE 250 mg/dL (NEGATIVE); KETONES,URINE NEGATIVE (NEGATIVE); LEUKOCYTE ESTERASE,URINE NEGATIVE (NEGATIVE); NITRITE,URINE NEGATIVE (NEGATIVE); OCCULT BLOOD,URINE NEGATIVE (NEGATIVE); PROTEIN,URINE NEGATIVE (NEGATIVE); UROBILINOGEN,URINE 0.2 EU/dL (0.2-1.0)
[2023-01-07 12:43] LABS: AMORPHOUS SEDIMENT,URINE NOT SEEN; BACTERIA,URINE NOT SEEN; EPITHELIAL CELLS,URINE NOT SEEN; MUCUS,URINE NOT SEEN; RBC,URINE NOT SEEN (0-5); WBC,URINE 0-5 (0-5)
[2023-01-07] MEDS ORDERED: Sodium Chloride 0.9% 1,000 ML IV SCH (12:45)
[2023-01-07] MEDS ORDERED: Acetaminophen 325 MG Tab PO PRN (14:18)
[2023-01-07] MEDS ORDERED: Ondansetron 4 MG/2 ML SDV IV PRN (14:18)
[2023-01-07] MEDS ORDERED: Ondansetron 4 MG Tab.DIS PO PRN (14:18)
[2023-01-07] MEDS ORDERED: HYDROmorphone 0.5 MG/0.5 ML Syringe IVPUSH PRN (14:18)
[2023-01-07] MEDS ORDERED: Magnesium Hydroxide 400 MG/5 ML Susp 30 ML Cup PO PRN (14:18)
[2023-01-07] MEDS ORDERED: Sennosides/Docusate Sodium 50-8.6 MG Tab PO PRN (14:18)
[2023-01-07] MEDS: hydrALAZINE 25 MG Tab PO SCH ×2 (15:08→20:29)
[2023-01-07] MEDS: Pantoprazole 40 MG Tab.CR PO SCH (16:24)
[2023-01-07] MEDS: Sodium Chloride 0.9% 1,000 ML IV SCH (16:27)
[2023-01-07 16:37] LABS: CALCIUM 8.3 mg/dL (8.5-10.1); CREATININE 1.4 mg/dL (0.6-1.0); EST CRCL DRUG DOSING (CG) 20.93 mL/min; POTASSIUM,K 4.1 mmol/L (3.6-5.2)
[2023-01-07 16:38] LABS: ANION GAP 11.1 mmol/L (5.0-14.0)
[2023-01-07] MEDS ORDERED: Acetaminophen 500 MG Tab PO SCH (21:00)
[2023-01-08] MEDS: Sodium Chloride 0.9% 1,000 ML IV SCH (02:37)
[2023-01-08 04:49] LABS: CALCIUM 8.1 mg/dL (8.5-10.1); CREATININE 1.3 mg/dL (0.6-1.0); EST CRCL DRUG DOSING (CG) 22.54 mL/min; POTASSIUM,K 4.4 mmol/L (3.6-5.2)
[2023-01-08 04:53] LABS: ANION GAP 10.4 mmol/L (5.0-14.0)
[2023-01-08 06:12] VITALS: PULSE 69
[2023-01-08] MEDS: Pantoprazole 40 MG Tab.CR PO SCH (07:29)
[2023-01-08] MEDS ORDERED: metFORMIN 500 MG Tab PO SCH (07:30)
[2023-01-08] MEDS: hydrALAZINE 25 MG Tab PO SCH (08:29)
[2023-01-08 08:32] VITALS: BP 132/55
[2023-01-08] MEDS ORDERED: Aspirin 81 MG Tab.EC PO SCH (09:00)
[2023-01-08] MEDS ORDERED: ROSUVASTATIN 10 MG PO SCH (09:00)
[2023-01-08] MEDS ORDERED: LISINOPRIL 40 MG PO SCH (09:00)
[2023-01-08] MEDS ORDERED: Cyanocobalamin (Vitamin B12) 1,000 MCG Tab PO SCH (09:00)
[2023-01-08] MEDS ORDERED: ISOSORBIDE MONO 60 MG PO SCH (09:00)
== END 2023-01-08 11:05 | disposition home or self-care (01) ==
LOC: JP.ED 09:52 → JP.MS 13:41
PROVIDERS: ADMIT Internal Medicine; ATTEND Internal Medicine
DX: E11.649 Type 2 diabetes mellitus with hypoglycemia without coma (principal); E87.1 Hypo-osmolality and hyponatremia; E11.51 Type 2 diabetes mellitus with diabetic peripheral angiopathy without gangrene; I12.9 Hypertensive chronic kidney disease with stage 1 through stage 4 chronic kidney disease, or unspecified chronic kidney disease; E11.22 Type 2 diabetes mellitus with diabetic chronic kidney disease; N18.32 Chronic kidney disease, stage 3b; I25.10 Atherosclerotic heart disease of native coronary artery without angina pectoris; M19.90 Unspecified osteoarthritis, unspecified site; E78.00 Pure hypercholesterolemia, unspecified; I25.2 Old myocardial infarction; K21.9 Gastro-esophageal reflux disease without esophagitis; Z20.822 Contact with and (suspected) exposure to COVID-19; Z95.0 Presence of cardiac pacemaker; Z91.041 Radiographic dye allergy status; Z79.84 Long term (current) use of oral hypoglycemic drugs; Z79.82 Long term (current) use of aspirin; Z79.899 Other long term (current) drug therapy; Z95.1 Presence of aortocoronary bypass graft; Z90.710 Acquired absence of both cervix and uterus; Z98.890 Other specified postprocedural states
CPT/HCPCS: 36415; 80048; 81001; 82947; 84443; 85027; 96360; 96361; 99222; 99238; 99285; A9270; G0378; J7030; U0002

== ENCOUNTER 2023-07-15 09:55 | Inpatient (IN) | payer MEDICARE, MEDICAID ==
[2023-07-15 11:30] LABS: BASOPHILS ABSOLUTE AUTO 0.03 K/uL (0.00-0.10); BASOPHILS PERCENT AUTO 0.5 % (0.1-1.3); EOSINOPHILS ABSOLUTE AUTO 0.11 K/uL (0.00-0.40); EOSINOPHILS PERCENT AUTO 1.9 % (0.0-5.4); HEMATOCRIT 26.6 % (34.3-46.0); HEMOGLOBIN 8.8 g/dL (11.2-15.5); IMMATURE GRAN ABSOLUTE AUTO 0.04 K/uL (0.00-0.23); IMMATURE GRAN PERCENT AUTO 0.7 % (0.0-0.7); LYMPHOCYTES ABSOLUTE AUTO 0.62 K/uL (0.8-3.3); LYMPHOCYTES PERCENT AUTO 10.5 % (11.4-47.7); MEAN CORPUSCULAR HEMOGLOBIN 25.1 pg (31.6-35.5); MEAN CORPUSCULAR HGB CONC 33.1 g/dL (31.6-35.5); MONOCYTES ABSOLUTE AUTO 0.31 K/uL (0.20-0.90); MONOCYTES PERCENT AUTO 5.2 % (3.3-12.6); NEUTROPHILS ABSOLUTE AUTO 4.82 K/uL (1.0-7.6); NEUTROPHILS PERCENT AUTO 81.2 % (40.0-78.1); PLATELET COUNT,PLT 197 K/uL (130-375); WHITE BLOOD CELL COUNT,WBC 5.9 K/uL (3.2-11.0)
[2023-07-15] MEDS ORDERED: Acetaminophen/HYDROcodone 325-5 MG Tab PO ONE (11:57)
[2023-07-15 11:58] LABS: ALANINE AMINOTRANSFERASE,ALT 20 U/L (12-78); ALBUMIN 3.2 g/dL (3.4-5.0); ALKALINE PHOSPHATASE 42 U/L (46-116); ASPARTATE AMNIOTRANSFERASE,AST 18 U/L (15-37); BILIRUBIN TOTAL 0.5 mg/dL (0.2-1.0); BLOOD UREA NITROGEN,BUN 21 mg/dL (7-18); CALCIUM 8.3 mg/dL (8.5-10.1); CARBON DIOXIDE,CO2 24 mmol/L (21-32); CHLORIDE,CL 92 mmol/L (100-108); ESTIMATED GFR 56 mL/min (>60); GLUCOSE RANDOM 115 mg/dL (74-106); POTASSIUM,K 4.5 mmol/L (3.6-5.2); PROTEIN TOTAL,TP 6.3 g/dL (6.4-8.2); SODIUM,NA 124 mmol/L (140-148)
[2023-07-15 11:59] LABS: ANION GAP 12.5 mmol/L (5.0-14.0)
[2023-07-15 12:12] LABS: APPEARANCE,URINE SLIGHTLY CLOUDY (CLEAR); BILIRUBIN,URINE NEGATIVE (NEGATIVE); COLOR,URINE YELLOW (YELLOW); GLUCOSE,URINE NEGATIVE (NEGATIVE); KETONES,URINE NEGATIVE (NEGATIVE); LEUKOCYTE ESTERASE,URINE LARGE (NEGATIVE); NITRITE,URINE NEGATIVE (NEGATIVE); OCCULT BLOOD,URINE NEGATIVE (NEGATIVE); PH,URINE 7.5 (5.0-8.0); PROTEIN,URINE NEGATIVE (NEGATIVE); UROBILINOGEN,URINE 0.2 EU/dL (0.2-1.0)
[2023-07-15 12:23] LABS: AMORPHOUS SEDIMENT,URINE NOT SEEN; BACTERIA,URINE MANY; EPITHELIAL CELLS,URINE NOT SEEN; MUCUS,URINE NOT SEEN; RBC,URINE NOT SEEN (0-5); WBC,URINE 30-40 (0-5)
[2023-07-15 13:00] LABS: CORONAVIRUS COVID-19 NAA NEGATIVE (NEGATIVE); INFLUENZA A NAA NEGATIVE (NEGATIVE); INFLUENZA B NAA NEGATIVE (NEGATIVE); RESPIRATORY SYNCYTIAL VIR NAA NEGATIVE (NEGATIVE)
[2023-07-15 14:28] LABS: RETICULOCYTE COUNT PERCENT 0.73 % (0.03-0.11)
[2023-07-15 14:36] LABS: IRON,FE 33 ug/dL (50-170); PERCENT FE SATURATION 9 % (20-55); TOTAL IRON BINDING CAPACITY 353 ug/dl (250-450)
[2023-07-15] MEDS ORDERED: Furosemide 20 MG Tab PO PRN (14:41)
[2023-07-15] MEDS ORDERED: oxyCODONE 5 MG Tab PO PRN (14:41)
[2023-07-15] MEDS ORDERED: Polyethylene Glycol 3350 Powder 17 GM Packet PO PRN (14:41)
[2023-07-15] MEDS ORDERED: Sodium Chloride 0.9% 10 ML Syringe FLUSH PRN (14:41)
[2023-07-15] MEDS ORDERED: Sodium Chloride 0.9% 1,000 ML IV SCH (14:41)
[2023-07-15] MEDS ORDERED: Ondansetron 4 MG/2 ML SDV IV PRN (14:41)
[2023-07-15] MEDS ORDERED: 50% Dextrose in Water 50 ML Syringe IV PRN (14:41)
[2023-07-15] MEDS ORDERED: Glucose Gel 15 GM in 37.5 GM Tube PO PRN (14:41)
[2023-07-15 15:02] LABS: FOLIC ACID 4.9 ng/ml (8.6-58.9)
[2023-07-15] MEDS ORDERED: Sodium Ferric Gluconate Cmplex 250 MG in Sodium Chloride 0.9% 100 ML IV ONE (16:05)
[2023-07-15] MEDS: Ferrous Sulfate 325 MG Tab PO SCH (16:29)
[2023-07-15] MEDS: Aspirin 81 MG Tab.EC PO SCH (16:29)
[2023-07-15] MEDS: Rosuvastatin 10 MG Tab PO SCH (16:29)
[2023-07-15] MEDS: hydrALAZINE 25 MG Tab PO SCH ×2 (16:29→20:11)
[2023-07-15] MEDS: Isosorbide Mononitrate 30 MG Tab.ER PO SCH (16:29)
[2023-07-15] MEDS: cefTRIAXone 1 GM in Sodium Chloride 0.9% 50 ML IV SCH (16:50)
[2023-07-15] MEDS: Folic Acid 1 MG Tab PO SCH (16:57)
[2023-07-15] MEDS: Enoxaparin 30 MG/0.3 ML Syringe SUBCUT SCH (16:59)
[2023-07-15] MEDS: metFORMIN 500 MG Tab PO SCH (17:05)
[2023-07-15] MEDS: Insulin Lispro 100 Unit/ML 3 ML KwikPen SUBCUT SCH ×2 (17:05→21:17)
[2023-07-15] MEDS: Melatonin 3 MG Tab PO PRN (22:34)
[2023-07-16 05:02] LABS: HEMATOCRIT 23.6 % (34.3-46.0); HEMOGLOBIN 7.6 g/dL (11.2-15.5); MEAN CORPUSCULAR HEMOGLOBIN 24.5 pg (31.6-35.5); MEAN CORPUSCULAR HGB CONC 32.2 g/dL (31.6-35.5); MEAN CORPUSCULAR VOLUME 76.1 fL (81.4-99.0); RED BLOOD CELL COUNT 3.1 M/uL (3.77-5.24); WHITE BLOOD CELL COUNT,WBC 4.9 K/uL (3.2-11.0)
[2023-07-16 05:15] LABS: CALCIUM 7.9 mg/dL (8.5-10.1); CREATININE 1.1 mg/dL (0.6-1.0); EST CRCL DRUG DOSING (CG) 26.36 mL/min; MAGNESIUM 1.4 mg/dL (1.8-2.4); POTASSIUM,K 4.8 mmol/L (3.6-5.2)
[2023-07-16 05:21] LABS: ANION GAP 13.8 mmol/L (5.0-14.0)
[2023-07-16] MEDS: Insulin Lispro 100 Unit/ML 3 ML KwikPen SUBCUT SCH ×4 (08:10→20:58)
[2023-07-16] MEDS: metFORMIN 500 MG Tab PO SCH ×2 (08:12→16:55)
[2023-07-16] MEDS: hydrALAZINE 25 MG Tab PO SCH ×3 (08:14→20:56)
[2023-07-16] MEDS: Ferrous Sulfate 325 MG Tab PO SCH (08:17)
[2023-07-16] MEDS: Rosuvastatin 10 MG Tab PO SCH (08:17)
[2023-07-16] MEDS: Folic Acid 1 MG Tab PO SCH (08:18)
[2023-07-16] MEDS: Aspirin 81 MG Tab.EC PO SCH (08:18)
[2023-07-16] MEDS: Isosorbide Mononitrate 30 MG Tab.ER PO SCH (08:19)
[2023-07-16] MEDS: Magnesium Sulfate/Water 2 GM in Premix Bag 1 BAG IV SCH ×3 (09:21→22:49)
[2023-07-16] MEDS: Magnesium Oxide 400 MG Tab PO SCH ×2 (09:25→20:56)
[2023-07-16] MEDS: OMEPRAZOLE 40 MG PO SCH ×2 (09:26→16:54)
[2023-07-16] MEDS: Acetaminophen 325 MG Tab PO PRN ×2 (11:47→22:49)
[2023-07-16] MEDS ORDERED: Sodium Ferric Gluconate Cmplex 250 MG in Sodium Chloride 0.9% 100 ML IV ONE (14:00)
[2023-07-16] MEDS: Enoxaparin 30 MG/0.3 ML Syringe SUBCUT SCH (16:54)
[2023-07-16] MEDS: cefTRIAXone 1 GM in Sodium Chloride 0.9% 50 ML IV SCH (18:14)
[2023-07-16] MEDS: Melatonin 3 MG Tab PO PRN (22:49)
[2023-07-17 05:28] LABS: MEAN CORPUSCULAR HEMOGLOBIN 24.6 pg (31.6-35.5); MEAN CORPUSCULAR VOLUME 76.9 fL (81.4-99.0); RED BLOOD CELL COUNT 3.25 M/uL (3.77-5.24); WHITE BLOOD CELL COUNT,WBC 5.2 K/uL (3.2-11.0)
[2023-07-17 05:44] LABS: CALCIUM 7.7 mg/dL (8.5-10.1); EST CRCL DRUG DOSING (CG) 27.39 mL/min; POTASSIUM,K 4.4 mmol/L (3.6-5.2)
[2023-07-17 05:47] LABS: ANION GAP 11.4 mmol/L (5.0-14.0)
[2023-07-17] MEDS: OMEPRAZOLE 40 MG PO SCH ×2 (07:55→16:56)
[2023-07-17] MEDS: metFORMIN 500 MG Tab PO SCH ×2 (07:58→16:56)
[2023-07-17] MEDS: Rosuvastatin 10 MG Tab PO SCH (07:59)
[2023-07-17] MEDS: Aspirin 81 MG Tab.EC PO SCH (07:59)
[2023-07-17] MEDS: Folic Acid 1 MG Tab PO SCH (07:59)
[2023-07-17] MEDS: Ferrous Sulfate 325 MG Tab PO SCH (07:59)
[2023-07-17] MEDS: Isosorbide Mononitrate 30 MG Tab.ER PO SCH (08:00)
[2023-07-17] MEDS: Insulin Lispro 100 Unit/ML 3 ML KwikPen SUBCUT SCH (08:01)
[2023-07-17] MEDS: hydrALAZINE 25 MG Tab PO SCH ×3 (08:01→20:03)
[2023-07-17] MEDS: Magnesium Oxide 400 MG Tab PO SCH ×2 (09:31→20:03)
[2023-07-17] MEDS ORDERED: Promethazine 6.25 MG in Sodium Chloride 0.9% 50 ML IV PRN (14:42)
[2023-07-17] MEDS: Enoxaparin 30 MG/0.3 ML Syringe SUBCUT SCH (16:53)
[2023-07-17] MEDS: Cephalexin 250 MG Cap PO SCH (20:03)
[2023-07-17] MEDS ORDERED: LORazepam 0.5 MG Tab PO ONE (20:42)
[2023-07-17 22:15] LABS: CORONAVIRUS COVID-19 NAA NEGATIVE (NEGATIVE); INFLUENZA A NAA NEGATIVE (NEGATIVE); INFLUENZA B NAA NEGATIVE (NEGATIVE); RESPIRATORY SYNCYTIAL VIR NAA NEGATIVE (NEGATIVE)
[2023-07-18 05:05] LABS: HEMATOCRIT 26.3 % (34.3-46.0); HEMOGLOBIN 8.5 g/dL (11.2-15.5); MEAN CORPUSCULAR HEMOGLOBIN 25.1 pg (31.6-35.5); MEAN CORPUSCULAR HGB CONC 32.3 g/dL (31.6-35.5); MEAN CORPUSCULAR VOLUME 77.6 fL (81.4-99.0); RED BLOOD CELL COUNT 3.39 M/uL (3.77-5.24); WHITE BLOOD CELL COUNT,WBC 6.1 K/uL (3.2-11.0)
[2023-07-18 06:04] VITALS: BP 164/65; PULSE 80
[2023-07-18] MEDS: metFORMIN 500 MG Tab PO SCH (08:12)
[2023-07-18] MEDS: hydrALAZINE 25 MG Tab PO SCH (08:12)
[2023-07-18] MEDS: Rosuvastatin 10 MG Tab PO SCH (08:12)
[2023-07-18] MEDS: OMEPRAZOLE 40 MG PO SCH (08:12)
[2023-07-18] MEDS: Folic Acid 1 MG Tab PO SCH (08:13)
[2023-07-18] MEDS: Isosorbide Mononitrate 30 MG Tab.ER PO SCH (08:13)
[2023-07-18] MEDS: Ferrous Sulfate 325 MG Tab PO SCH (08:13)
[2023-07-18] MEDS: Cephalexin 250 MG Cap PO SCH (08:13)
[2023-07-18] MEDS: Magnesium Oxide 400 MG Tab PO SCH (08:13)
[2023-07-18] MEDS: Aspirin 81 MG Tab.EC PO SCH (08:13)
== END 2023-07-18 12:01 | DRG 689 ==
LOC: JP.ED 09:55 → JP.MS 13:35 → UNDOADMIN 14:11 → UNDODISIN 07-18 12:01
PROVIDERS: ADMIT Hospitalist; ATTEND Internal Medicine
DX: N39.0 Urinary tract infection, site not specified (principal); S72.115A Nondisplaced fracture of greater trochanter of left femur, initial encounter for closed fracture; I13.0 Hypertensive heart and chronic kidney disease with heart failure and stage 1 through stage 4 chronic kidney disease, or unspecified chronic kidney disease; E87.1 Hypo-osmolality and hyponatremia; I25.10 Atherosclerotic heart disease of native coronary artery without angina pectoris; I50.9 Heart failure, unspecified; E78.00 Pure hypercholesterolemia, unspecified; D50.9 Iron deficiency anemia, unspecified; Z66 Do not resuscitate; E83.42 Hypomagnesemia; K21.9 Gastro-esophageal reflux disease without esophagitis; M19.90 Unspecified osteoarthritis, unspecified site; E11.51 Type 2 diabetes mellitus with diabetic peripheral angiopathy without gangrene; D63.1 Anemia in chronic kidney disease; N18.32 Chronic kidney disease, stage 3b; B96.1 Klebsiella pneumoniae [K. pneumoniae] as the cause of diseases classified elsewhere; E11.22 Type 2 diabetes mellitus with diabetic chronic kidney disease; I73.9 Peripheral vascular disease, unspecified; R53.81 Other malaise; W18.30XA Fall on same level, unspecified, initial encounter; Z91.041 Radiographic dye allergy status; Z79.84 Long term (current) use of oral hypoglycemic drugs; Z79.82 Long term (current) use of aspirin; Z79.899 Other long term (current) drug therapy; I25.2 Old myocardial infarction; Z95.0 Presence of cardiac pacemaker; Z86.010 Personal history of colon polyps; Z98.49 Cataract extraction status, unspecified eye; Z98.890 Other specified postprocedural states; Z90.710 Acquired absence of both cervix and uterus; Z87.891 Personal history of nicotine dependence; Z95.1 Presence of aortocoronary bypass graft; Z11.52 Encounter for screening for COVID-19; R53.1 Weakness; W18.39XA Other fall on same level, initial encounter
CPT/HCPCS: 0241U; 36415; 73700-LT; 76377; 80048; 80053; 81001; 82607; 82728; 82746; 82947; 83550; 83615; 83735; 84443; 85025; 85027; 85045; 87086; 87088; 87186; 93005; 93010; 97116-GP; 97161-GP; 97165-GO; 99222; 99232; 99238; 99285; A9270-GY; J0696; J1650; J1815; J2405; J2550; J2916; J3475; J3490; J7030

== ENCOUNTER 2023-08-03 09:57 | Emergency (ER) | payer MEDICARE, MEDICAID ==
[2023-08-03 11:55] LABS: CORONAVIRUS COVID-19 NAA NEGATIVE (NEGATIVE); INFLUENZA A NAA NEGATIVE (NEGATIVE); INFLUENZA B NAA NEGATIVE (NEGATIVE); RESPIRATORY SYNCYTIAL VIR NAA NEGATIVE (NEGATIVE)
[2023-08-03 12:16] LABS: BASOPHILS ABSOLUTE AUTO 0.04 K/uL (0.00-0.10); BASOPHILS PERCENT AUTO 0.9 % (0.1-1.3); EOSINOPHILS ABSOLUTE AUTO 0.15 K/uL (0.00-0.40); EOSINOPHILS PERCENT AUTO 3.5 % (0.0-5.4); HEMATOCRIT 31.2 % (34.3-46.0); HEMOGLOBIN 10.1 g/dL (11.2-15.5); IMMATURE GRAN PERCENT AUTO 0.5 % (0.0-0.7); LYMPHOCYTES ABSOLUTE AUTO 1.14 K/uL (0.8-3.3); LYMPHOCYTES PERCENT AUTO 26.6 % (11.4-47.7); MEAN CORPUSCULAR HEMOGLOBIN 26.7 pg (31.6-35.5); MEAN CORPUSCULAR HGB CONC 32.4 g/dL (31.6-35.5); MEAN CORPUSCULAR VOLUME 82.5 fL (81.4-99.0); MONOCYTES ABSOLUTE AUTO 0.34 K/uL (0.20-0.90); MONOCYTES PERCENT AUTO 7.9 % (3.3-12.6); NEUTROPHILS ABSOLUTE AUTO 2.59 K/uL (1.0-7.6); NEUTROPHILS PERCENT AUTO 60.6 % (40.0-78.1); PLATELET COUNT,PLT 231 K/uL (130-375); RED BLOOD CELL COUNT 3.78 M/uL (3.77-5.24); WHITE BLOOD CELL COUNT,WBC 4.3 K/uL (3.2-11.0)
[2023-08-03 12:20] LABS: IMMATURE GRAN ABSOLUTE AUTO 0.02 K/uL (0.00-0.23)
[2023-08-03 12:33] LABS: ANION GAP 12.5 mmol/L (5.0-14.0); CALCIUM 8.3 mg/dL (8.5-10.1); EST CRCL DRUG DOSING (CG) 25.33 mL/min; POTASSIUM,K 3.5 mmol/L (3.6-5.2)
[2023-08-03 12:43] LABS: LACTIC ACID 1.2 mmol/L (0.4-2.0)
[2023-08-03 13:50] LABS: APPEARANCE,URINE SLIGHTLY CLOUDY (CLEAR); BILIRUBIN,URINE NEGATIVE (NEGATIVE); COLOR,URINE YELLOW (YELLOW); GLUCOSE,URINE NEGATIVE (NEGATIVE); KETONES,URINE NEGATIVE (NEGATIVE); LEUKOCYTE ESTERASE,URINE TRACE (NEGATIVE); NITRITE,URINE NEGATIVE (NEGATIVE); OCCULT BLOOD,URINE NEGATIVE (NEGATIVE); PROTEIN,URINE 30 mg/dL (NEGATIVE); UROBILINOGEN,URINE 0.2 EU/dL (0.2-1.0)
[2023-08-03 13:55] LABS: AMORPHOUS SEDIMENT,URINE MODERATE; BACTERIA,URINE RARE; EPITHELIAL CELLS,URINE MODERATE; MUCUS,URINE MODERATE; RBC,URINE 0-5 (0-5); WBC,URINE 0-5 (0-5)
[2023-08-03] MEDS ORDERED: Ondansetron 4 MG Tab.DIS PO ONE (14:27)
[2023-08-03] MEDS ORDERED: Famotidine 20 MG Tab PO ONE (14:27)
[2023-08-03] MEDS ORDERED: Sodium Chloride 0.9% 10 ML Syringe FLUSH PRN (15:10)
[2023-08-03] MEDS: Ondansetron 4 MG/2 ML SDV IVPUSH ONE (15:24)
[2023-08-03] MEDS: Sodium Chloride 0.9% 1,000 ML IV ONE (15:24)
[2023-08-03 16:29] VITALS: BP 159/73; PULSE 83
== END 2023-08-03 16:48 | disposition home or self-care (01) ==
LOC: JP.ED 09:57
DX: R53.1 Weakness (principal); R10.10 Upper abdominal pain, unspecified; I10 Essential (primary) hypertension; E78.00 Pure hypercholesterolemia, unspecified; I25.10 Atherosclerotic heart disease of native coronary artery without angina pectoris; I25.2 Old myocardial infarction; K21.9 Gastro-esophageal reflux disease without esophagitis; E11.9 Type 2 diabetes mellitus without complications; M19.90 Unspecified osteoarthritis, unspecified site; Z79.82 Long term (current) use of aspirin; Z91.041 Radiographic dye allergy status; Z79.899 Other long term (current) drug therapy
CPT/HCPCS: 0241U; 36415; 71046; 71046-26; 80048; 81001; 83605; 84145; 85025; 96361; 96374; 99283; 99285-25; J2405; J7030

== ENCOUNTER 2023-08-18 17:35 | Inpatient (IN) | payer MEDICARE, MEDICAID ==
[2023-08-18 18:29] LABS: CORONAVIRUS COVID-19 NAA NEGATIVE (NEGATIVE); INFLUENZA A NAA NEGATIVE (NEGATIVE); INFLUENZA B NAA NEGATIVE (NEGATIVE); RESPIRATORY SYNCYTIAL VIR NAA NEGATIVE (NEGATIVE)
[2023-08-18 18:35] LABS: BASOPHILS ABSOLUTE AUTO 0.03 K/uL (0.00-0.10); BASOPHILS PERCENT AUTO 0.5 % (0.1-1.3); EOSINOPHILS ABSOLUTE AUTO 0.15 K/uL (0.00-0.40); EOSINOPHILS PERCENT AUTO 2.7 % (0.0-5.4); HEMATOCRIT 31.2 % (34.3-46.0); IMMATURE GRAN PERCENT AUTO 0.4 % (0.0-0.7); LYMPHOCYTES ABSOLUTE AUTO 1.45 K/uL (0.8-3.3); LYMPHOCYTES PERCENT AUTO 25.9 % (11.4-47.7); MEAN CORPUSCULAR HEMOGLOBIN 27.3 pg (31.6-35.5); MEAN CORPUSCULAR HGB CONC 32.1 g/dL (31.6-35.5); MEAN CORPUSCULAR VOLUME 85.2 fL (81.4-99.0); MONOCYTES ABSOLUTE AUTO 0.36 K/uL (0.20-0.90); MONOCYTES PERCENT AUTO 6.4 % (3.3-12.6); NEUTROPHILS ABSOLUTE AUTO 3.59 K/uL (1.0-7.6); NEUTROPHILS PERCENT AUTO 64.1 % (40.0-78.1); PLATELET COUNT,PLT 174 K/uL (130-375); RED BLOOD CELL COUNT 3.66 M/uL (3.77-5.24); WHITE BLOOD CELL COUNT,WBC 5.6 K/uL (3.2-11.0)
[2023-08-18 18:36] LABS: IMMATURE GRAN ABSOLUTE AUTO 0.02 K/uL (0.00-0.23)
[2023-08-18 18:50] LABS: ANION GAP 10.7 mmol/L (5.0-14.0); CALCIUM 8.7 mg/dL (8.5-10.1); CREATININE 1.1 mg/dL (0.6-1.0); EST CRCL DRUG DOSING (CG) 23.59 mL/min; POTASSIUM,K 3.6 mmol/L (3.6-5.2)
[2023-08-18] MEDS: diphenhydrAMINE 50 MG/ML SDV IVPUSH ONE (19:36)
[2023-08-18] MEDS: Sodium Chloride 0.9% 10 ML Syringe FLUSH ONE (19:36)
[2023-08-18] MEDS: Sodium Chloride 0.9% 500 ML IV ONE (19:38)
[2023-08-18] MEDS ORDERED: Ondansetron 4 MG/2 ML SDV IV PRN (22:41)
[2023-08-18] MEDS: Furosemide 40 MG/4 ML VIAL IVPUSH ONE (23:02)
[2023-08-18] MEDS: Iopamidol 612 MG/ML 100 ML Bottle IV ONE (23:46)
[2023-08-18] MEDS: Sodium Chloride 0.9% 100 ML IV ONE (23:46)
[2023-08-19 04:46] LABS: HEMOGLOBIN 10.2 g/dL (11.2-15.5); MEAN CORPUSCULAR HEMOGLOBIN 27.3 pg (31.6-35.5); MEAN CORPUSCULAR HGB CONC 31.9 g/dL (31.6-35.5); MEAN CORPUSCULAR VOLUME 85.6 fL (81.4-99.0); RED BLOOD CELL COUNT 3.74 M/uL (3.77-5.24); WHITE BLOOD CELL COUNT,WBC 5.8 K/uL (3.2-11.0)
[2023-08-19 05:00] LABS: ANION GAP 9.5 mmol/L (5.0-14.0); CALCIUM 8.6 mg/dL (8.5-10.1); CREATININE 1.3 mg/dL (0.6-1.0); EST CRCL DRUG DOSING (CG) 22.26 mL/min; POTASSIUM,K 3.9 mmol/L (3.6-5.2)
[2023-08-19] MEDS ORDERED: Insulin Lispro 100 Unit/ML 3 ML KwikPen SUBCUT SCH (05:30)
[2023-08-19] MEDS ORDERED: Non-Formulary Medication 1 Each (Metformin Hcl [Metformin Hcl Er] 500 MG Tab.Er.24h) PO SCH (07:30)
[2023-08-19] MEDS: Insulin Lispro 100 Unit/ML 3 ML KwikPen SUBCUT SCH (09:31)
[2023-08-19] MEDS ORDERED: Propofol 200 MG/20 ML SDV ONE (11:27)
[2023-08-19] MEDS: Pantoprazole 40 MG Tab.CR PO SCH (12:31)
[2023-08-19] MEDS: Rosuvastatin 10 MG Tab PO SCH (12:34)
[2023-08-19] MEDS: hydrALAZINE 25 MG Tab PO SCH (12:34)
[2023-08-19] MEDS: metFORMIN 500 MG Tab PO SCH (12:34)
[2023-08-19] MEDS: Cyanocobalamin (Vitamin B12) 1,000 MCG Tab PO SCH (12:35)
[2023-08-19] MEDS: Ferrous Sulfate 325 MG Tab PO SCH (12:35)
[2023-08-19] MEDS: Isosorbide Mononitrate 30 MG Tab.ER PO SCH (13:03)
[2023-08-19] MEDS: Magnesium Hydroxide 400 MG/5 ML Susp 30 ML Cup PO PRN (13:08)
[2023-08-19] MEDS: Sennosides/Docusate Sodium 50-8.6 MG Tab PO PRN (13:08)
[2023-08-19] MEDS: Lactated Ringers 1,000 ML IV SCH (16:00)
[2023-08-20 08:40] LABS: HEMATOCRIT 35.9 % (34.3-46.0); HEMOGLOBIN 11.4 g/dL (11.2-15.5); MEAN CORPUSCULAR HEMOGLOBIN 27.6 pg (31.6-35.5); MEAN CORPUSCULAR HGB CONC 31.8 g/dL (31.6-35.5); MEAN CORPUSCULAR VOLUME 86.9 fL (81.4-99.0); RED BLOOD CELL COUNT 4.13 M/uL (3.77-5.24); WHITE BLOOD CELL COUNT,WBC 6.9 K/uL (3.2-11.0)
[2023-08-20 09:01] LABS: ALBUMIN 3.1 g/dL (3.4-5.0); ANION GAP 11.9 mmol/L (5.0-14.0); BLOOD UREA NITROGEN,BUN 25 mg/dL (7-18); CALCIUM 8.8 mg/dL (8.5-10.1); CARBON DIOXIDE,CO2 26 mmol/L (21-32); CHLORIDE,CL 108 mmol/L (100-108); CREATININE 1.2 mg/dL (0.6-1.0); EST CRCL DRUG DOSING (CG) 23.66 mL/min; ESTIMATED GFR 45 mL/min (>60); GLUCOSE RANDOM 171 mg/dL (74-106); PHOSPHORUS 4.2 mg/dL (2.5-4.9); POTASSIUM,K 3.8 mmol/L (3.6-5.2); SODIUM,NA 146 mmol/L (140-148)
[2023-08-20 09:38] LABS: HEMOGLOBIN A1C 6.5 % (4.5-6.2)
[2023-08-20] MEDS: Bisacodyl 10 MG Supp RECTAL ONE (13:14)
[2023-08-21] MEDS: Metoclopramide 10 MG Tab PO SCH (12:43)
[2023-08-21] MEDS ORDERED: Loperamide 1 MG/7.5 ML 7.5 ML UD Cup PO PRN (16:24)
[2023-08-21] MEDS: Iopamidol 612 MG/ML 50 ML SDV PO ONE (16:40)
[2023-08-21] MEDS: Enoxaparin 30 MG/0.3 ML Syringe SUBCUT SCH (20:23)
[2023-08-22] MEDS: Lactated Ringers 1,000 ML IV SCH (04:28)
[2023-08-22 06:20] LABS: BASOPHILS ABSOLUTE AUTO 0.04 K/uL (0.00-0.10); BASOPHILS PERCENT AUTO 0.5 % (0.1-1.3); EOSINOPHILS ABSOLUTE AUTO 0.08 K/uL (0.00-0.40); EOSINOPHILS PERCENT AUTO 0.9 % (0.0-5.4); HEMATOCRIT 33.9 % (34.3-46.0); HEMOGLOBIN 10.6 g/dL (11.2-15.5); IMMATURE GRAN ABSOLUTE AUTO 0.04 K/uL (0.00-0.23); IMMATURE GRAN PERCENT AUTO 0.5 % (0.0-0.7); LYMPHOCYTES ABSOLUTE AUTO 1.16 K/uL (0.8-3.3); LYMPHOCYTES PERCENT AUTO 13.2 % (11.4-47.7); MEAN CORPUSCULAR HEMOGLOBIN 27.2 pg (31.6-35.5); MEAN CORPUSCULAR HGB CONC 31.3 g/dL (31.6-35.5); MEAN CORPUSCULAR VOLUME 87.1 fL (81.4-99.0); MONOCYTES ABSOLUTE AUTO 0.59 K/uL (0.20-0.90); MONOCYTES PERCENT AUTO 6.7 % (3.3-12.6); NEUTROPHILS ABSOLUTE AUTO 6.85 K/uL (1.0-7.6); NEUTROPHILS PERCENT AUTO 78.2 % (40.0-78.1); PLATELET COUNT,PLT 172 K/uL (130-375); RED BLOOD CELL COUNT 3.89 M/uL (3.77-5.24); WHITE BLOOD CELL COUNT,WBC 8.8 K/uL (3.2-11.0)
[2023-08-22 06:40] LABS: A/G RATIO 0.8 (1.2-2.2); ALANINE AMINOTRANSFERASE,ALT 14 U/L (12-78); ALBUMIN 2.9 g/dL (3.4-5.0); ALKALINE PHOSPHATASE 66 U/L (46-116); ANION GAP 12.8 mmol/L (5.0-14.0); ASPARTATE AMNIOTRANSFERASE,AST 22 U/L (15-37); BILIRUBIN TOTAL 0.8 mg/dL (0.2-1.0); BLOOD UREA NITROGEN,BUN 36 mg/dL (7-18); CALCIUM 8.8 mg/dL (8.5-10.1); CARBON DIOXIDE,CO2 23 mmol/L (21-32); CHLORIDE,CL 106 mmol/L (100-108); CREATININE 1.3 mg/dL (0.6-1.0); EST CRCL DRUG DOSING (CG) 19.51 mL/min; ESTIMATED GFR 41 mL/min (>60); GLUCOSE RANDOM 264 mg/dL (74-106); MAGNESIUM 2.1 mg/dL (1.8-2.4); PHOSPHORUS 4.3 mg/dL (2.5-4.9); POTASSIUM,K 4.6 mmol/L (3.6-5.2); PROTEIN TOTAL,TP 6.5 g/dL (6.4-8.2); SODIUM,NA 142 mmol/L (140-148)
[2023-08-22 06:42] LABS: IRON,FE 27 ug/dL (50-170); PERCENT FE SATURATION 13 % (20-55); TOTAL IRON BINDING CAPACITY 215 ug/dl (250-450)
[2023-08-22] MEDS: Sodium Ferric Gluconate Cmplex 250 MG in Sodium Chloride 0.9% 100 ML IV ONE (10:09)
[2023-08-22] MEDS: Ferrous Sulfate 325 MG Tab PO SCH (17:04)
[2023-08-22 19:36] LABS: CORTISOL,SERUM 38.5 ug/dL
[2023-08-22] MEDS: Insulin Lispro 100 Unit/ML 3 ML KwikPen SUBCUT SCH (21:11)
[2023-08-23] MEDS: Acetaminophen 325 MG Tab PO PRN (03:09)
[2023-08-23] MEDS: Melatonin 3 MG Tab PO PRN (03:10)
[2023-08-23] MEDS: Albuterol/Ipratropium 3.0-0.5 MG/3 ML Neb Soln NEB PRN (05:54)
[2023-08-23 06:29] LABS: HEMATOCRIT 32.8 % (34.3-46.0); HEMOGLOBIN 10.3 g/dL (11.2-15.5); RED BLOOD CELL COUNT 3.73 M/uL (3.77-5.24); WHITE BLOOD CELL COUNT,WBC 9.9 K/uL (3.2-11.0)
[2023-08-23 06:30] LABS: MEAN CORPUSCULAR HEMOGLOBIN 27.6 pg (31.6-35.5); MEAN CORPUSCULAR HGB CONC 31.4 g/dL (31.6-35.5); MEAN CORPUSCULAR VOLUME 87.9 fL (81.4-99.0)
[2023-08-23 06:48] LABS: ANION GAP 14.5 mmol/L (5.0-14.0); CREATININE 1.3 mg/dL (0.6-1.0); EST CRCL DRUG DOSING (CG) 19.77 mL/min; POTASSIUM,K 4.5 mmol/L (3.6-5.2)
[2023-08-23 06:49] LABS: CALCIUM 8.6 mg/dL (8.5-10.1)
[2023-08-23] MEDS ORDERED: Piperacillin/Tazobactam 2.25 GM in Sodium Chloride 0.9% 50 ML IV SCH (07:45)
[2023-08-23] MEDS ORDERED: Vancomycin 1 GM SDV IV SCH (08:00)
[2023-08-23] MEDS ORDERED: Sodium Ferric Gluconate Cmplex 250 MG in Sodium Chloride 0.9% 100 ML IV ONE (08:00)
[2023-08-23] MEDS: Piperacillin/Tazobactam/Dext 2.25 GM in Premix Bag 1 BAG IV SCH ×2 (08:48→23:20)
[2023-08-23] MEDS: Sodium Ferric Gluconate Cmplex 250 MG in Sodium Chloride 0.9% 100 ML IV ONE (11:03)
[2023-08-23] MEDS: Polyethylene Glycol 3350 Powder 17 GM Packet PO ONE (11:17)
[2023-08-23] MEDS: Bisacodyl 10 MG Supp RECTAL ONE (11:17)
[2023-08-23] MEDS: Sodium Phosphate,Monobasic/Sodium Phosphate,Dibasic Enema 133 ML Bottle RECTAL ONE (11:18)
[2023-08-23] MEDS: Sodium Chloride 0.9% 1,000 ML IV SCH (17:16)
[2023-08-24 04:32] LABS: HEMATOCRIT 30.5 % (34.3-46.0); HEMOGLOBIN 9.5 g/dL (11.2-15.5); MEAN CORPUSCULAR HEMOGLOBIN 27.5 pg (31.6-35.5); MEAN CORPUSCULAR HGB CONC 31.1 g/dL (31.6-35.5); MEAN CORPUSCULAR VOLUME 88.4 fL (81.4-99.0); RED BLOOD CELL COUNT 3.45 M/uL (3.77-5.24); WHITE BLOOD CELL COUNT,WBC 7.9 K/uL (3.2-11.0)
[2023-08-24 04:55] LABS: ANION GAP 9.8 mmol/L (5.0-14.0); CALCIUM 8.5 mg/dL (8.5-10.1); CREATININE 1.2 mg/dL (0.6-1.0); EST CRCL DRUG DOSING (CG) 21.42 mL/min; MAGNESIUM 1.8 mg/dL (1.8-2.4); POTASSIUM,K 5.1 mmol/L (3.6-5.2)
[2023-08-24] MEDS: Furosemide 40 MG/4 ML VIAL IVPUSH ONE ×2 (09:16→20:10)
[2023-08-24] MEDS: LORazepam 0.5 MG Tab PO ONE (09:16)
[2023-08-24] MEDS: Bisacodyl 10 MG Supp RECTAL ONE (16:52)
[2023-08-24] MEDS: Polyethylene Glycol 3350 Powder 17 GM Packet PO ONE (16:53)
[2023-08-25 04:50] LABS: HEMATOCRIT 29.4 % (34.3-46.0); HEMOGLOBIN 9.2 g/dL (11.2-15.5); MEAN CORPUSCULAR HEMOGLOBIN 27.3 pg (31.6-35.5); MEAN CORPUSCULAR HGB CONC 31.3 g/dL (31.6-35.5); MEAN CORPUSCULAR VOLUME 87.2 fL (81.4-99.0); RED BLOOD CELL COUNT 3.37 M/uL (3.77-5.24); WHITE BLOOD CELL COUNT,WBC 6.8 K/uL (3.2-11.0)
[2023-08-25 05:10] LABS: ANION GAP 8.3 mmol/L (5.0-14.0); CALCIUM 8.4 mg/dL (8.5-10.1); CREATININE 1.3 mg/dL (0.6-1.0); EST CRCL DRUG DOSING (CG) 19.62 mL/min; MAGNESIUM 1.6 mg/dL (1.8-2.4); POTASSIUM,K 3.9 mmol/L (3.6-5.2)
[2023-08-25] MEDS: Magnesium Sulfate/Water 2 GM in Premix Bag 1 BAG IV SCH (08:41)
[2023-08-25] MEDS: Magnesium Oxide 400 MG Tab PO SCH (08:44)
[2023-08-25] MEDS: Furosemide 40 MG/4 ML VIAL IVPUSH ONE (08:46)
[2023-08-26 06:34] LABS: CALCIUM 7.8 mg/dL (8.5-10.1); CREATININE 1.2 mg/dL (0.6-1.0); EST CRCL DRUG DOSING (CG) 23.86 mL/min; MAGNESIUM 2.1 mg/dL (1.8-2.4)
[2023-08-26] MEDS: Potassium Chloride 20 MEQ Tab.ER PO ONE ×2 (09:42→12:21)
[2023-08-26] MEDS: Furosemide 40 MG Tab PO SCH (09:43)
[2023-08-26] MEDS: Polyethylene Glycol 3350 Powder 17 GM Packet PO ONE (14:22)
[2023-08-26] MEDS: Piperacillin/Tazobactam 2.25 GM in Sodium Chloride 0.9% 50 ML IV SCH (16:57)
[2023-08-27 05:50] LABS: ANION GAP 9.8 mmol/L (5.0-14.0); EST CRCL DRUG DOSING (CG) 28.11 mL/min; POTASSIUM,K 3.6 mmol/L (3.6-5.2)
[2023-08-27] MEDS: Potassium Chloride 20 MEQ Tab.ER PO ONE ×2 (11:26→17:20)
[2023-08-27] MEDS: Amoxicillin/Clavulanate K 875-125 MG Tab PO SCH (22:37)
[2023-08-28 06:14] LABS: ANION GAP 13.6 mmol/L (5.0-14.0); CALCIUM 8.4 mg/dL (8.5-10.1); CREATININE 1.1 mg/dL (0.6-1.0); EST CRCL DRUG DOSING (CG) 26.03 mL/min; POTASSIUM,K 3.6 mmol/L (3.6-5.2)
[2023-08-28] MEDS: Amoxicillin/Clavulanate K 500-125 MG Tab PO SCH (20:51)
[2023-08-29 07:04] LABS: EST CRCL DRUG DOSING (CG) 28.63 mL/min; POTASSIUM,K 3.2 mmol/L (3.6-5.2)
[2023-08-29 07:07] LABS: HEMATOCRIT 30.3 % (34.3-46.0); HEMOGLOBIN 9.7 g/dL (11.2-15.5); MEAN CORPUSCULAR HEMOGLOBIN 27.8 pg (31.6-35.5); MEAN CORPUSCULAR VOLUME 86.8 fL (81.4-99.0); WHITE BLOOD CELL COUNT,WBC 5.9 K/uL (3.2-11.0)
[2023-08-29 07:15] LABS: ANION GAP 13.2 mmol/L (5.0-14.0)
[2023-08-29 07:30] LABS: RED BLOOD CELL COUNT 3.49 M/uL (3.77-5.24)
[2023-08-29] MEDS ORDERED: Propofol 200 MG/20 ML SDV ONE (07:57)
[2023-08-29] MEDS: Lidocaine 1% 20 ML MDV ONE (09:14)
[2023-08-29] MEDS: Potassium Chloride 10 MEQ in Premix Bag 1 BAG IV SCH (09:37)
[2023-08-29] MEDS: Enoxaparin 30 MG/0.3 ML Syringe SUBCUT SCH (20:33)
[2023-08-30 05:57] LABS: ANION GAP 8.1 mmol/L (5.0-14.0); CALCIUM 8.2 mg/dL (8.5-10.1); CREATININE 0.8 mg/dL (0.6-1.0); EST CRCL DRUG DOSING (CG) 38.27 mL/min; MAGNESIUM 1.5 mg/dL (1.8-2.4)
[2023-08-30] MEDS: Magnesium Sulfate/Water 2 GM in Premix Bag 1 BAG IV SCH (09:02)
[2023-09-01] MEDS: Furosemide 40 MG Tab PO ONE (12:19)
[2023-09-01] MEDS: Bisacodyl 10 MG Supp RECTAL ONE (13:20)
[2023-09-01] MEDS: Magnesium Hydroxide 400 MG/5 ML Susp 30 ML Cup GTUBE ONE (17:28)
[2023-09-02 05:03] LABS: HEMATOCRIT 31.8 % (34.3-46.0); MEAN CORPUSCULAR HEMOGLOBIN 27.7 pg (31.6-35.5); MEAN CORPUSCULAR HGB CONC 31.4 g/dL (31.6-35.5); MEAN CORPUSCULAR VOLUME 88.1 fL (81.4-99.0); RED BLOOD CELL COUNT 3.61 M/uL (3.77-5.24); WHITE BLOOD CELL COUNT,WBC 7.6 K/uL (3.2-11.0)
[2023-09-02 05:19] LABS: CALCIUM 8.3 mg/dL (8.5-10.1); CREATININE 0.9 mg/dL (0.6-1.0); EST CRCL DRUG DOSING (CG) 32.56 mL/min; POTASSIUM,K 4.6 mmol/L (3.6-5.2)
[2023-09-02 05:25] LABS: ANION GAP 9.6 mmol/L (5.0-14.0)
[2023-09-02] MEDS: Furosemide 20 MG Tab PO SCH (08:39)
[2023-09-02] MEDS ORDERED: Sodium Chloride 0.9% 10 ML Syringe FLUSH PRN (15:13)
[2023-09-02] MEDS: Furosemide 40 MG/4 ML VIAL IVPUSH ONE (15:41)
[2023-09-02] MEDS: Sodium Phosphate,Monobasic/Sodium Phosphate,Dibasic Enema 133 ML Bottle RECTAL ONE (15:41)
[2023-09-03 04:43] LABS: HEMATOCRIT 31.4 % (34.3-46.0); HEMOGLOBIN 10.1 g/dL (11.2-15.5); MEAN CORPUSCULAR HEMOGLOBIN 28.1 pg (31.6-35.5); MEAN CORPUSCULAR HGB CONC 32.2 g/dL (31.6-35.5); MEAN CORPUSCULAR VOLUME 87.2 fL (81.4-99.0); RED BLOOD CELL COUNT 3.6 M/uL (3.77-5.24); WHITE BLOOD CELL COUNT,WBC 6.1 K/uL (3.2-11.0)
[2023-09-03 04:59] LABS: CALCIUM 8.3 mg/dL (8.5-10.1); CREATININE 0.9 mg/dL (0.6-1.0); EST CRCL DRUG DOSING (CG) 34.02 mL/min; MAGNESIUM 1.9 mg/dL (1.8-2.4); POTASSIUM,K 4.4 mmol/L (3.6-5.2)
[2023-09-03 05:14] LABS: ANION GAP 11.4 mmol/L (5.0-14.0)
[2023-09-03] MEDS: Polyethylene Glycol 3350 Powder 119 GM Bottle GTUBE ONE (11:01)
[2023-09-03] MEDS: Furosemide 20 MG/2 ML VIAL IVPUSH ONE (14:25)
[2023-09-04] MEDS: Polyethylene Glycol 3350 Powder 17 GM Packet PO SCH (21:29)
[2023-09-05] MEDS: Ondansetron 4 MG Tab.DIS PO PRN (17:01)
[2023-09-05] MEDS: Pantoprazole 40 MG Tab.CR PO SCH (17:01)
[2023-09-05] MEDS: Acetaminophen/HYDROcodone 325-5 MG Tab PO PRN (20:23)
[2023-09-07 10:54] VITALS: BP 108/51; PULSE 82
== END 2023-09-07 13:45 | DRG 392 ==
LOC: JP.ED 17:35 → JP.MS 21:55
PROVIDERS: ADMIT Registered Nurse; ATTEND Hospitalist
PROC: 0D9670Z Drainage of Stomach with Drainage Device, Via Natural or Artificial Opening (ICD-10-PCS; 2023-08-19)
PROC: 0DH63UZ Insertion of Feeding Device into Stomach, Percutaneous Approach (ICD-10-PCS; 2023-08-19)
PROC: 0DB58ZX Excision of Esophagus, Via Natural or Artificial Opening Endoscopic, Diagnostic (ICD-10-PCS; principal; 2023-08-19 11:15)
DX: K22.2 Esophageal obstruction (principal); I11.0 Hypertensive heart disease with heart failure; K22.0 Achalasia of cardia; I13.0 Hypertensive heart and chronic kidney disease with heart failure and stage 1 through stage 4 chronic kidney disease, or unspecified chronic kidney disease; I50.9 Heart failure, unspecified; R62.7 Adult failure to thrive; I25.10 Atherosclerotic heart disease of native coronary artery without angina pectoris; E11.9 Type 2 diabetes mellitus without complications; E78.00 Pure hypercholesterolemia, unspecified; K21.9 Gastro-esophageal reflux disease without esophagitis; M19.90 Unspecified osteoarthritis, unspecified site; E11.22 Type 2 diabetes mellitus with diabetic chronic kidney disease; Z66 Do not resuscitate; N18.32 Chronic kidney disease, stage 3b; K44.9 Diaphragmatic hernia without obstruction or gangrene; T18.9XXA Foreign body of alimentary tract, part unspecified, initial encounter; K20.90 Esophagitis, unspecified without bleeding; K22.89 Other specified disease of esophagus; K59.01 Slow transit constipation; R14.0 Abdominal distension (gaseous); R63.4 Abnormal weight loss; K22.70 Barrett's esophagus without dysplasia; Z68.20 Body mass index [BMI] 20.0-20.9, adult; Z91.041 Radiographic dye allergy status; Z79.82 Long term (current) use of aspirin; Z79.899 Other long term (current) drug therapy; Z79.84 Long term (current) use of oral hypoglycemic drugs; I25.2 Old myocardial infarction; Z95.0 Presence of cardiac pacemaker; Z87.19 Personal history of other diseases of the digestive system; Z86.010 Personal history of colon polyps; Z87.81 Personal history of (healed) traumatic fracture; Z98.49 Cataract extraction status, unspecified eye; Z98.890 Other specified postprocedural states; Z95.1 Presence of aortocoronary bypass graft; Z95.5 Presence of coronary angioplasty implant and graft
CPT/HCPCS: 0241U; 36415; 70450; 70491; 71045; 71046; 71260; 74019; 74176; 74177; 76000; 76998; 80048; 80053; 80069; 80202; 82533; 82947; 83036; 83550; 83735; 84100; 84443; 85025; 85027; 86140; 88305; 93005; 94640; 96374; 97110; 97161; 97530; 99284; 99285; 93010; 99223; 99232; 99233; 99238; A9270-GY; C1769; J1200; J1650; J1815; J1940; J2543; J2704; J2916; J3370; J3475; J3480; J3490; J7030; J7040; J7050; J7120; J7620; Q0162; Q9967; U0002

== ENCOUNTER 2023-09-15 02:09 | Emergency (ER) | payer MEDICARE, MEDICAID ==
[2023-09-15 02:33] LABS: BASOPHILS ABSOLUTE AUTO 0.03 K/uL (0.00-0.10); BASOPHILS PERCENT AUTO 0.5 % (0.1-1.3); EOSINOPHILS PERCENT AUTO 1.5 % (0.0-5.4); HEMATOCRIT 31.8 % (34.3-46.0); HEMOGLOBIN 10.4 g/dL (11.2-15.5); IMMATURE GRAN PERCENT AUTO 0.3 % (0.0-0.7); LYMPHOCYTES ABSOLUTE AUTO 0.94 K/uL (0.8-3.3); LYMPHOCYTES PERCENT AUTO 14.6 % (11.4-47.7); MEAN CORPUSCULAR HEMOGLOBIN 29.5 pg (31.6-35.5); MEAN CORPUSCULAR HGB CONC 32.7 g/dL (31.6-35.5); MEAN CORPUSCULAR VOLUME 90.3 fL (81.4-99.0); MONOCYTES ABSOLUTE AUTO 0.47 K/uL (0.20-0.90); MONOCYTES PERCENT AUTO 7.3 % (3.3-12.6); NEUTROPHILS PERCENT AUTO 75.8 % (40.0-78.1); PLATELET COUNT,PLT 122 K/uL (130-375); RED BLOOD CELL COUNT 3.52 M/uL (3.77-5.24); WHITE BLOOD CELL COUNT,WBC 6.5 K/uL (3.2-11.0)
[2023-09-15 02:39] LABS: IMMATURE GRAN ABSOLUTE AUTO 0.02 K/uL (0.00-0.23)
[2023-09-15 03:08] LABS: CALCIUM 9.1 mg/dL (8.5-10.1); CREATININE 0.8 mg/dL (0.6-1.0); EST CRCL DRUG DOSING (CG) 32.43 mL/min; POTASSIUM,K 4.8 mmol/L (3.6-5.2)
[2023-09-15 03:09] LABS: ANION GAP 13.8 mmol/L (5.0-14.0)
[2023-09-15] MEDS ORDERED: Furosemide 40 MG/4 ML VIAL IVPUSH ONE (03:38)
[2023-09-15] MEDS: Furosemide 20 MG/2 ML VIAL IVPUSH ONE (03:55)
[2023-09-15 05:03] VITALS: BP 139/69; PULSE 96
== END 2023-09-15 05:10 ==
LOC: JP.ED 02:09
DX: I50.1 Left ventricular failure, unspecified (principal); I10 Essential (primary) hypertension; E11.9 Type 2 diabetes mellitus without complications; E78.00 Pure hypercholesterolemia, unspecified; I25.2 Old myocardial infarction; K21.9 Gastro-esophageal reflux disease without esophagitis; I25.810 Atherosclerosis of coronary artery bypass graft(s) without angina pectoris; Z79.899 Other long term (current) drug therapy; Z79.84 Long term (current) use of oral hypoglycemic drugs; Z90.710 Acquired absence of both cervix and uterus; Z79.82 Long term (current) use of aspirin; Z91.041 Radiographic dye allergy status
CPT/HCPCS: 36415; 71045; 80048; 83880; 84484; 85025; 93005; 96374; 99285; J1940

== ENCOUNTER 2023-09-20 14:20 | Inpatient (IN) | payer MEDICARE, MEDICAID ==
[2023-09-20 14:55] LABS: BASOPHILS PERCENT AUTO 0.2 % (0.1-1.3); EOSINOPHILS ABSOLUTE AUTO 0.04 K/uL (0.00-0.40); EOSINOPHILS PERCENT AUTO 0.7 % (0.0-5.4); HEMATOCRIT 29.7 % (34.3-46.0); HEMOGLOBIN 9.8 g/dL (11.2-15.5); IMMATURE GRAN PERCENT AUTO 0.4 % (0.0-0.7); LYMPHOCYTES ABSOLUTE AUTO 0.62 K/uL (0.8-3.3); LYMPHOCYTES PERCENT AUTO 11.1 % (11.4-47.7); MEAN CORPUSCULAR HEMOGLOBIN 29.8 pg (31.6-35.5); MEAN CORPUSCULAR VOLUME 90.3 fL (81.4-99.0); MONOCYTES PERCENT AUTO 7.2 % (3.3-12.6); NEUTROPHILS PERCENT AUTO 80.4 % (40.0-78.1); PLATELET COUNT,PLT 181 K/uL (130-375); RED BLOOD CELL COUNT 3.29 M/uL (3.77-5.24); WHITE BLOOD CELL COUNT,WBC 5.6 K/uL (3.2-11.0)
[2023-09-20 15:02] LABS: BASOPHILS ABSOLUTE AUTO 0.01 K/uL (0.00-0.10); IMMATURE GRAN ABSOLUTE AUTO 0.02 K/uL (0.00-0.23)
[2023-09-20] MEDS: Sodium Chloride 0.9% 10 ML Syringe FLUSH PRN (15:10)
[2023-09-20 15:24] LABS: A/G RATIO 0.7 (1.2-2.2); ALANINE AMINOTRANSFERASE,ALT 26 U/L (12-78); ALKALINE PHOSPHATASE 70 U/L (46-116); ANION GAP 14.3 mmol/L (5.0-14.0); ASPARTATE AMNIOTRANSFERASE,AST 21 U/L (15-37); BILIRUBIN TOTAL 0.6 mg/dL (0.2-1.0); BLOOD UREA NITROGEN,BUN 38 mg/dL (7-18); CALCIUM 9.1 mg/dL (8.5-10.1); CARBON DIOXIDE,CO2 29 mmol/L (21-32); CHLORIDE,CL 95 mmol/L (100-108); EST CRCL DRUG DOSING (CG) 30.62 mL/min; ESTIMATED GFR 56 mL/min (>60); GLUCOSE RANDOM 291 mg/dL (74-106); POTASSIUM,K 5.3 mmol/L (3.6-5.2); PROTEIN TOTAL,TP 7.1 g/dL (6.4-8.2); SODIUM,NA 133 mmol/L (140-148)
[2023-09-20 15:25] LABS: PRO B-TYPE NATRIUR PEPT,BNPPRO 52648 pg/mL (5-450); TROPONIN I HIGH SENSITIVITY 810.9 pg/mL (<=60.3)
[2023-09-20] MEDS: Furosemide 40 MG/4 ML VIAL IVPUSH ONE (16:24)
[2023-09-20 19:48] LABS: CORONAVIRUS COVID-19 NAA NEGATIVE (NEGATIVE); INFLUENZA A NAA NEGATIVE (NEGATIVE); INFLUENZA B NAA NEGATIVE (NEGATIVE); RESPIRATORY SYNCYTIAL VIR NAA NEGATIVE (NEGATIVE)
[2023-09-20] MEDS ORDERED: Ipratropium 0.03% Nasal Spray 30 ML Bot NAS PRN (20:23)
[2023-09-20] MEDS ORDERED: Furosemide 20 MG Tab GTUBE PRN (20:23)
[2023-09-20] MEDS ORDERED: Acetaminophen 325 MG Tab GTUBE PRN (20:23)
[2023-09-20] MEDS ORDERED: Ondansetron 4 MG/2 ML SDV IV PRN (20:23)
[2023-09-20] MEDS: hydrALAZINE 25 MG Tab GTUBE SCH (21:42)
[2023-09-20] MEDS: LORazepam ORAL Concentrate 1MG/0.5ML U/D PO PRN (21:42)
[2023-09-21 05:24] LABS: BASOPHILS PERCENT AUTO 0.4 % (0.1-1.3); EOSINOPHILS PERCENT AUTO 1.9 % (0.0-5.4); HEMATOCRIT 28.3 % (34.3-46.0); HEMOGLOBIN 9.3 g/dL (11.2-15.5); IMMATURE GRAN PERCENT AUTO 0.4 % (0.0-0.7); LYMPHOCYTES ABSOLUTE AUTO 1.03 K/uL (0.8-3.3); MEAN CORPUSCULAR HEMOGLOBIN 29.6 pg (31.6-35.5); MEAN CORPUSCULAR HGB CONC 32.9 g/dL (31.6-35.5); MEAN CORPUSCULAR VOLUME 90.1 fL (81.4-99.0); MONOCYTES ABSOLUTE AUTO 0.37 K/uL (0.20-0.90); MONOCYTES PERCENT AUTO 7.2 % (3.3-12.6); NEUTROPHILS ABSOLUTE AUTO 3.61 K/uL (1.0-7.6); NEUTROPHILS PERCENT AUTO 70.1 % (40.0-78.1); PLATELET COUNT,PLT 177 K/uL (130-375); RED BLOOD CELL COUNT 3.14 M/uL (3.77-5.24); WHITE BLOOD CELL COUNT,WBC 5.2 K/uL (3.2-11.0)
[2023-09-21 05:26] LABS: BASOPHILS ABSOLUTE AUTO 0.02 K/uL (0.00-0.10); IMMATURE GRAN ABSOLUTE AUTO 0.02 K/uL (0.00-0.23)
[2023-09-21 05:48] LABS: CALCIUM 9.1 mg/dL (8.5-10.1); CREATININE 0.9 mg/dL (0.6-1.0); EST CRCL DRUG DOSING (CG) 30.88 mL/min; POTASSIUM,K 4.4 mmol/L (3.6-5.2)
[2023-09-21 05:51] LABS: ANION GAP 13.4 mmol/L (5.0-14.0)
[2023-09-21] MEDS ORDERED: Furosemide 40 MG/4 ML VIAL IVPUSH SCH (06:10)
[2023-09-21] MEDS: Furosemide 40 MG/4 ML VIAL IVPUSH ONE (06:10)
[2023-09-21] MEDS ORDERED: Pantoprazole 40 MG Tab.CR SCH (07:30)
[2023-09-21] MEDS: Pantoprazole 40 MG Delayed-Release Granules 1 Packet GTUBE SCH (08:28)
[2023-09-21] MEDS ORDERED: Aspirin 81 MG Tab.EC GTUBE SCH (09:00)
[2023-09-21] MEDS: Isosorbide Mononitrate 30 MG Tab.ER SCH (10:19)
[2023-09-21] MEDS: Aspirin 81 MG Tab.Chew GTUBE SCH (10:19)
[2023-09-21] MEDS: Morphine 10 MG/0.5 ML Oral Syringe BUCCAL PRN (15:40)
[2023-09-23] MEDS ORDERED: Morphine 10 MG/0.5 ML Oral Syringe BUCCAL PRN (17:39)
[2023-09-23] MEDS: LORazepam ORAL Concentrate 1MG/0.5ML U/D PO PRN (21:14)
[2023-09-23] MEDS: Morphine 10 MG/0.5 ML Oral Syringe BUCCAL PRN (21:23)
[2023-09-24] MEDS: Morphine 10 MG/0.5 ML Oral Syringe BUCCAL PRN (13:00)
[2023-09-27 10:10] VITALS: PULSE 59
[2023-09-27 16:03] VITALS: BP 73/57
[2023-09-28] MEDS: Morphine 10 MG/0.5 ML Oral Syringe BUCCAL PRN (00:26)
[2023-09-28] MEDS: LORazepam ORAL Concentrate 1MG/0.5ML U/D PO PRN (00:26)
== END 2023-09-28 07:43 | disposition expired | DRG 951 ==
LOC: JP.ED 14:20 → JP.MS 19:34
PROVIDERS: ADMIT Hospitalist; ATTEND Internal Medicine
DX: I11.0 Hypertensive heart disease with heart failure (principal); I50.9 Heart failure, unspecified; Z51.5 Encounter for palliative care; I50.33 Acute on chronic diastolic (congestive) heart failure; E87.1 Hypo-osmolality and hyponatremia; I13.0 Hypertensive heart and chronic kidney disease with heart failure and stage 1 through stage 4 chronic kidney disease, or unspecified chronic kidney disease; Z68.1 Body mass index [BMI] 19.9 or less, adult; I25.10 Atherosclerotic heart disease of native coronary artery without angina pectoris; E78.00 Pure hypercholesterolemia, unspecified; H54.7 Unspecified visual loss; K21.9 Gastro-esophageal reflux disease without esophagitis; M19.90 Unspecified osteoarthritis, unspecified site; E11.9 Type 2 diabetes mellitus without complications; E87.5 Hyperkalemia; Z66 Do not resuscitate; K22.0 Achalasia of cardia; E11.22 Type 2 diabetes mellitus with diabetic chronic kidney disease; N18.30 Chronic kidney disease, stage 3 unspecified; D63.1 Anemia in chronic kidney disease; F41.9 Anxiety disorder, unspecified; R62.7 Adult failure to thrive; Z91.041 Radiographic dye allergy status; Z79.82 Long term (current) use of aspirin; Z79.899 Other long term (current) drug therapy; Z79.84 Long term (current) use of oral hypoglycemic drugs; I25.2 Old myocardial infarction; Z86.010 Personal history of colon polyps; Z87.440 Personal history of urinary (tract) infections; Z87.81 Personal history of (healed) traumatic fracture; Z95.0 Presence of cardiac pacemaker; Z98.49 Cataract extraction status, unspecified eye; Z98.890 Other specified postprocedural states; Z95.1 Presence of aortocoronary bypass graft; Z90.710 Acquired absence of both cervix and uterus; Z87.891 Personal history of nicotine dependence; Z93.1 Gastrostomy status
CPT/HCPCS: 0241U; 36415; 71045; 80048; 80053; 83605; 83880; 84484; 85025; 93005; 93010; 96374; 99223; 99232; 99233; 99238; 99285; A9270-GY; J1940; J3490